=== PATIENT | female | born 1960 | race Caucasian/White ===

== ENCOUNTER → 2018-12-28 | Outpatient (CLI) | payer MEDICAID ==
--- NOTE | 2018-12-28 10:00 | Diagnostic Imaging Report ---
Examination: Bilateral knees 3 views. History: Chronic knee pain. Findings: No comparison available. There is moderate medial compartment predominant tricompartmental osteoarthritis of the right knee. No right knee joint effusion. No fracture. There are few loose bodies in the joint space. Alignment is normal. There is moderate medial compartment predominant tricompartmental osteoarthritis of the left knee. No knee joint effusion. No fracture. Alignment is normal. Impression: 1. Bilateral moderate medial compartment predominant tricompartmental osteoarthritis of the knees. Dictated by: Dictated on workstation # [id number]
== END ==
LOC: RAD FS 08:49
PROVIDERS: ATTEND Nurse Practitioner Family
DX: M17.0 Bilateral primary osteoarthritis of knee (principal)

== ENCOUNTER 2019-05-03 09:45 | Inpatient (IN) | payer MEDICAID ==
[~2019-05-03] VITALS: Ht 167 cm; Wt 87.0 kg
[2019-05-11] MEDS ORDERED: MELO15TA39 PO (13:35)
[2019-05-11] MEDS ORDERED: DULO30CA49 PO (13:35)
[2019-05-11] MEDS ORDERED: ATEN50TA PO (13:35)
--- NOTE | 2019-05-12 09:58 | HISTORY AND PHYSICAL ---
DATE OF SERVICE: 05/17/2019 ADMISSION HISTORY AND PHYSICAL DATE OF ADMISSION: 05/17/2019. Date of service will be 05/17/2019 for right total knee arthroplasty. HISTORY OF PRESENT ILLNESS: The patient is a 58-year-old female with complaints of progressive worsening right knee pain. This has been present for over 18 years. She reports swelling. She is under the treatment with injections with only temporary relief of symptoms. She reports activity limitations because of the knee and inability to exercise because of the knee. Due to functional impairment and failure to improve with conservative measures, the patient elected to proceed with surgical intervention. REVIEW OF SYSTEMS: No chest pain, no shortness of breath, no dysuria. PAST MEDICAL HISTORY: Borderline diabetes and hypertension. PAST SURGICAL HISTORY: Right breast biopsy. FAMILY HISTORY: Noncontributory. PRIMARY CARE PROVIDER: Anderson Rice MD. MEDICATIONS: Atenolol and Mobic. ALLERGIES: CODEINE. SOCIAL HISTORY: The patient is a former smoker. Denies alcohol use. RADIOGRAPHS: Reveal severe medial and patellofemoral arthrosis with osteophyte formation noted in both compartments. PHYSICAL EXAMINATION: GENERAL: The patient is well developed, well-nourished, in no acute distress. HEENT: Normocephalic, atraumatic. Pupils are equal, round and reactive to light. Oropharynx is clear. NECK: Supple, no lymphadenopathy. LUNGS: Clear to auscultation bilaterally. HEART: Regular rate and rhythm. ABDOMEN: Soft, nontender and nondistended. EXTREMITIES: The right knee demonstrates varus alignment. She has moderate effusion. She is tender along the medial joint line. She has patellofemoral crepitus and pain with patellar loading. Range of motion is 0/2/125. She is ligamentously stable in all planes. She ambulates with an antalgic gait. IMPRESSION: Right knee severe osteoarthritis, unresponsive to conservative measures. PLAN: Right total knee arthroplasty. The risks, benefits, options, ramifications and recovery were discussed at length with the patient. She understands and wishes to proceed. Job ID: [id number] DocumentID: [id number] Dictated Date: 05/05/2019 09:48:21 Envelope Sealer Operator Date: 05/05/2019 10:34:16 Dictated By: AISHA LEE MD
[2019-05-17] VITALS (13 sets, daily range): BP systolic 124–163; BP diastolic 65–87
[2019-05-17] MEDS ORDERED: ONDANSETRON 4 MG/2 ML (SDV) Z0FRAN ONE (06:37)
[2019-05-17] MEDS ORDERED: LIDOCAINE PF 2% 5 ML (XYLOCAINE) VIAL ONE (06:37)
[2019-05-17] MEDS ORDERED: SEVOFLURANE (ULTANE) 15 ML INHAL SOLN ONE ×3 (06:37→09:03)
[2019-05-17] MEDS ORDERED: DEXAMETHASONE 10 MG/ML (DECADRON) 1 ML VIAL ONE (06:37)
[2019-05-17] MEDS ORDERED: proPOfol 200 MG/20 ML (DIPRIVAN) VIAL IV ONE (06:37)
[2019-05-17] MEDS ORDERED: MIDAZOLAM 2 MG/2 ML (VERSED) VIAL ONE (06:38)
[2019-05-17] MEDS ORDERED: fentaNYL INJECTION 100 MCG/2 ML AMP ONE (06:38)
[2019-05-17] MEDS ORDERED: TRANEXAMIC ACID 100 MG/ML 10 ML INJECTION IV ONE (06:41)
[2019-05-17] MEDS ORDERED: CEFUROXIME INJECTION 1,500 MG in WATER (STERILE) FOR INJECTION 15 ML IV ONE (06:45)
[2019-05-17] MEDS ORDERED: CEFUROXIME 1.5 GM (ZINACEF) VIAL ONE ×3 (06:51→23:23)
[2019-05-17] MEDS ORDERED: WATER (STERILE) FOR INJECTION 20 ML ONE (06:53)
[2019-05-17] MEDS: LACTATED RINGERS 1,000 ML IV PRN ×2 (06:53→09:23)
[2019-05-17] MEDS ORDERED: INTRA-ARTICULAR IU ONE ×5 (07:15)
[2019-05-17] MEDS ORDERED: diphenhydrAMINE 50 MG/ML INJ (BENADRYL) IVP PRN (07:15)
[2019-05-17] MEDS ORDERED: CATHETER FLUSH 10 ML SYR IV PRN (07:15)
[2019-05-17] MEDS ORDERED: morphine PCA 100 MG/100 ML BAG IV PRN (07:15)
[2019-05-17] MEDS ORDERED: ACETAMINOPHEN 325 MG TABLET PO PRN (07:15)
--- NOTE | 2019-05-17 07:24 | Progress Note-Pre Operative ---
Pre-Operative Progress Note H&P Reviewed The H&P was reviewed, patient examined and no changes noted. Date Seen by Provider: May 17, 2019 Time Seen by Provider: 07:15 Date H&P Reviewed: May 17, 2019 Time H&P Reviewed: 07:11 Pre-Operative Diagnosis: right knee primary osteoarthritis AISHA LEE MD May 17, 2019 07:23 POS
--- NOTE | 2019-05-17 07:25 | Progress Note-Post Operative ---
Post-Operative Progess Note Surgeon (s)/Carroting Machine Operator (s) Surgeon AISHA LEE MD Carroting Machine Operator: Jim Kim Pre-Operative Diagnosis right knee primary osteoarthritis Post-Operative Diagnosis right knee primary osteoarthritis Procedure & Operative Findings Date of Procedure 05/17/19 Procedure Performed/Findings right total knee arthroplasty Anesthesia Type GETA plus regional Estimated Blood Loss Estimated blood loss (mL): minimal Specimens/Packing Specimens Removed none Packing: none AISHA LEE MD May 17, 2019 07:25 POS
[2019-05-17] MEDS ORDERED: OXYC1TAB87 PO (07:27)
--- NOTE | 2019-05-17 07:29 | D/C HH Face to Face Order ---
D/C Face to Face Orders Reconcile Patient Problems Problems Reviewed?: Yes Instructions for Patient Via Doris ProQuo, Patient Instructions/FollowUp: three weeks Physician to follow Patient: three weeks Discharge Diet for Home: Regular Diet Patient Data-Allergies,Ht & Wt Patient Allergies: Coded Allergies: codeine (Verified Allergy, Mild, RASH, 05/11/19) Home Health Need/Face to Face Date of Face to Face: May 17, 2019 Clinical Findings: Instability, Muscle weakness, Pain with ambulation, Unsteady gait I have seen Pt [id number]: Yes Discharged To: Home Diagnosis/Conditions: right total knee arthroplasty Patient is Homebound due to: Blaise fall risk due to instabilty, Muscle weakness, Pain w/ambulation Homebound Status Due to the above stated illness, injury or surgical procedure (medical condition or diagnosis) and associated clinical findings, the patient is homebound because of his/her inability to leave home except with aid of a supportive device and/or person AND leaving the home requires a considerable and taxing effort or is medically contraindicated. Pt req the following assistanc: Walker [facility] Health Nursing Orders Home Health Services Order: Physical Therapy-Evaluate & Treat DC right knee luke and apply steri strips 05/31/19 Home Health Infusion Therapy Line Start Date: May 17, 2019 Therapy Orders Therapy Orders: Physical Therapy, PT to assess for OT Therapy Specific Orders: Eval assistive deivces, Teach enviro modifications/safety, Gait training, Increase strength/endurance, Provider maintenance therapy, Restore ROM Certify Stmt I certify that this patient is under my care and that I, a nurse practitioner or a physician; a financial sales assistant working with me, had a face to face encounter that - meets the physician face to face encounter requirements with this patient as dated. AISHA LEE MD May 17, 2019 07:29 POS
[2019-05-17] MEDS ORDERED: hydrALAZINE (APESOLINE) 20 MG/ML VIAL ONE (08:13)
[2019-05-17] MEDS ORDERED: BUPIVACAINE 0.25% 30 ML (SENSORCAINE) VIAL ONE ×2 (08:17→09:17)
[2019-05-17] MEDS ORDERED: MEPERIDINE (DEMEROL) INJ 50 MG/ML ONE (09:10)
[2019-05-17] MEDS ORDERED: morphine INJ 10 MG/ML 1ML (SYR OR VIAL) ONE (09:10)
[2019-05-17] MEDS ORDERED: morphine INJ 10 MG/ML 1ML (SYR OR VIAL) IVP ONE (09:15)
[2019-05-17] MEDS ORDERED: ONDANSETRON 4 MG/2 ML (SDV) Z0FRAN IVP PRN (09:15)
[2019-05-17] MEDS ORDERED: MEPERIDINE (DEMEROL) INJ 50 MG/ML IVP ONE (09:15)
--- NOTE | 2019-05-17 10:02 | Diagnostic Imaging Report ---
INDICATION: Right knee surgery. FINDINGS: AP and lateral views of the right knee reveal total right knee arthroplasty. No fracture or malalignment is identified. Gas and fluid is seen in the knee joint. IMPRESSION: No evidence of immediate complication post recent total right knee arthroplasty. Dictated by: Dictated on workstation # [id number]
[2019-05-17] MEDS: NS IV 1000 ML 1,000 ML IV SCH ×3 (11:00→23:32)
[2019-05-17] MEDS: SENNA W/DOCUSATE (SENOKOT S) TABLET PO SCH ×2 (11:01→21:08)
--- NOTE | 2019-05-17 11:04 | Progress Note ---
Standard Progress Note Progress Notes/Assess & Plan Date Seen by a Provider: May 17, 2019 Time Seen by a Provider: 09:45 Progress/Assessment & Plan post op check No complaints radiographs--HW well positioned without fracture RLE--2 plus DP pulse with brisk cap refill. Intact sensation to light touch throughout. Intact DF and PF of toes and ankle s/p RTKA mobilize as able AISHA LEE MD May 17, 2019 11:04 POS
--- NOTE | 2019-05-17 11:36 | Anesthesia-General Post-Op ---
General Patient Condition Mental Status/LOC: Same as Preop Cardiovascular: Satisfactory Nausea/Vomiting: Absent Respiratory: Satisfactory Pain: Controlled Complications: Absent Post Op Complications Complications None Follow Up Care/Instructions Patient Instructions None needed. Anesthesia/Patient Condition Patient Condition Patient is doing well, no complaints, stable vital signs, no apparent adverse anesthesia problems. No complications reported per nursing. KEVIN GONZALES CRNA May 17, 2019 11:36 POS
[2019-05-17] MEDS: ONDANSETRON 4 MG/2 ML (SDV) Z0FRAN IVP PRN (13:16)
--- NOTE | 2019-05-17 13:29 | OPERATIVE REPORT ---
DATE OF SERVICE: 05/17/2019 PREOPERATIVE DIAGNOSIS: Right knee primary osteoarthritis. POSTOPERATIVE DIAGNOSIS: Right knee primary osteoarthritis. PROCEDURE: Right total knee arthroplasty. SURGEON: Akin Lee MD SECRET SERVICE AGENT: MAHOGANY Dean, who assisted throughout the procedure and closed the incision. ANESTHESIA: General endotracheal by Yolis Pop CRNA, plus regional nerve block as per my request for postoperative pain management. TOURNIQUET TIME: Approximately 56 minutes at 300 mmHg. ESTIMATED BLOOD LOSS: Minimal. DRAINS: None. COMPLICATIONS: None. POSTOPERATIVE PLAN: Routine protocol. MATERIALS: Microport cemented size 3 femur, cemented size 3 tibia with 10 mm insert and cemented size 32 patellar button. The patient was transferred to recovery room awake and in stable condition. STATEMENT OF MEDICAL NECESSITY: The patient is a 58-year-old female with long-standing progressive right knee pain. Radiographs revealed complete loss of medial and patellofemoral joint spaces. She has undergone treatment with injections, anti-inflammatories and rest without relief. Due to functional impairment and failure to improve with conservative measures, the patient elected to proceed with surgical intervention. DESCRIPTION OF PROCEDURE: After risks and benefits of procedure were discussed and questions were answered and informed consent was signed and placed on chart, the operative site was confirmed in the preoperative holding area initialed by the surgeon. The patient was transferred to the operating room. After adequate levels of general endotracheal anesthetic were obtained, a timeout was called, confirming the operative site. The right lower extremity was then prepped and draped in the usual sterile fashion with the leg elevated and the knee flexed, tourniquet inflated to 300 mmHg. A standard anterior approach was utilized. Hemostasis was obtained with cautery. Medial parapatellar arthrotomy was performed leaving 1 cm cuff on the patella for later reattachment. A portion of the fat pad was resected. A subperiosteal release was performed in the proximal medial tibia being careful to stay on the bony surface. The ACL was resected. Intramedullary guide was passed into the femur. The distal cutting block was placed and the distal cut was made. The femur was sized to a size 3 and 3 cutting block was placed parallel to the epicondylar axis. This was then used to make cuts from posterior to anterior. A subperiosteal release was then carefully performed on the posterior distal femur, being careful stay on the bony surface. Intramedullary guide was then passed into the tibia. The cutting block was placed and drop elida transected the intermalleolar axis and felt to be in excellent position. The cut was made. The baseplate was placed and the drop elida again transected the intermalleolar axis. This was prepared with the drill and keel punch. The femoral trial was placed and the trochlear cut was made. The 10 mm insert was placed and the patella was then prepared using the freehand technique by selecting 10 mm off the undersurface. The peg guide was placed and peg holes were drilled. Trials were inserted and the knee had full extension and 130 degrees of flexion with gravity. The patella tracked well. There was no anterior/posterior or medial/lateral laxity in flexion or extension. Trials were removed and the joint was irrigated with pulse lavage. Periarticular block was placed in the posterior capsule, medial and lateral retinaculum extensor mechanism subcutaneous tissues. The bone ends were irrigated and dried and the tibial baseplate was cemented into position. Excess cement was removed. The superior surface was irrigated and dried and the polyethylene insert was placed. Distal femur was irrigated and dried and the femoral prosthesis was cemented in position. Excessive cement was removed. The undersurface of patella was irrigated and dried. The patellar button was cemented in position. Excessive cement was removed. Once the cement had cured, the knee was taken through a range of motion. Full extension was easily obtained flexion with gravity was easily obtained. There was no anterior/posterior or medial/lateral laxity in flexion or extension. The patella tracked well. Joint was further irrigated with pulse lavage. Arthrotomy was closed with #2 Tevdek in zfxhcs-bt-umzsv interrupted fashion. Knee was flexed. No undue tension at the repair site. Subcutaneous tissues were irrigated using a total of 6 liters throughout the procedure. A 0 Vicryl was used for deep subcutaneous tissue, 2-0 Vicryl for the superficial subcutaneous tissue and luke used on the skin. A soft dressing was applied. The tourniquet was deflated. The patient was transferred to recovery room awake and in stable condition. Job ID: [id number] DocumentID: [id number] Dictated Date: 05/17/2019 09:15:12 Stranner Date: 05/17/2019 13:29:12 Dictated By: AKIN LEE MD
--- NOTE | 2019-05-17 15:12 | Physical Therapy Evaluation ---
PT Evaluation-General Medical Diagnosis Admission Date May 17, 2019 at 05:47 Medical Diagnosis: S/P R TKA Onset Date: May 17, 2019 Therapy Diagnosis Therapy Diagnosis: abn gait, weakness, decreased activity bassam, poor balance Precautions Precautions/Isolations: Fall Prevention, Standard Precautions Weight Bear Status Right Lower Extremity: Right Weight Bearing/Tolerated Left Lower Extremity: Left Full Weight Bearing Referral Physician: Julio Reason for Referral: Evaluation/Treatment, Strengthening Medical History Additional Medical History PAST MEDICAL HISTORY: Borderline diabetes and hypertension. PAST SURGICAL HISTORY: Right breast biopsy. Reviewed History: Yes Social History Home: Single Level Current Living Status: Significant Other Entry Into Home: Stairs Without Railing PT Steps Into Home: 1 pt ex present and reports pts prior and home status Prior Prior Level of Function SCALE: Activities may be completed with or without assistive devices. 0-Qdpvghpuur-kbqenwb completes the activity by him/herself with no assistance from a helper. 5-Set-up or Clean-up Assistance-helper sets up or cleans up; patient completes activity. [place] assists only prior to or following the activity. 4-Supervision or Touching Assistance-helper provides verbal cues and/or touching/steadying and/or contact guard assistance as patient completes activity. Assistance may be provided throughout the activity or intermittently. 3-Partial/Moderate Assistance-helper does LESS THAN HALF the effort. [place] lifts, holds or supports trunk or limbs, but provides less than half the effort. 2-Substantial/Maximal Assistance-helper does MORE THAN HALF the effort. [place] lifts or holds trunk or limbs and provides more than half the effort. 5-Cwohrroul-hcnsdc does ALL the effort. Patient does none of the effort to complete the activity. Or, the assistance of 2 or more helpers is required for the patient to complete the activity. If activity was not attempted, code reason: 7-Patient Refused. 9-Not Applicable-not attempted and the patient did not perform the activity before the current illness, exacerbation or injury. 10-Not Attempted due to Environmental Limitations-(lack of equipment, weather restraints, etc.). 88-Not Attempted due to Medical Conditions or Safety Concerns. Bed Mobility: 6 Transfers (B,C,W/C): 6 Gait: 6 Stairs: 3 Indoor Mobility (Ambulation): Independent Stairs: Needed Some Help PT Evaluation-Current Subjective pt on bedside commode pre-tx agrees to therapy. pt reports 5/10 pain in the RLE. pt in bed post-tx with call light, room phone, tray table in reach with ex present for therapy. Bed alarm not working, nurse notified. Pt/Family Goals none stated Objective Patient Orientation: Person, Confused, Place, Time, Situation, Mumbles Attachments: SCD's, Polar Pack, IV cpm ROM/Strength ROM Lower Extremities 65degrees R knee flexion 10 degrees lacking R TKE Integumentary/Posture Integumentary see nursing notes Sensory Vision: Functional Hearing: Functional Sensation Right Lower Extremit: Intact Sensation Left Lower Extremity: Intact Transfers Roll Left to Right (QC): 9 Sit to Lying (QC): 3 (modA) Lying to Sitting/Side of Bed(Q: 9 Sit to Stand (QC): 3 (Bethany) Chair/Pvc-zn-Isnmg Xfer(QC): 3 (modA) Car Transfer (QC): 9 Gait Does the Patient Walk?: Yes Mode of Locomotion: Walk Anticipated Mode of Locomotion: Walk Walk 10 feet (QC): 9 Walk 50 ft with 2 Turns(QC): 9 Walk 150 ft (QC): 9 Walking 10ft/uneven surface-QC: 9 Distance: 2' Gait Assistive Device: FWW Comments/Gait Description pt only able to shuffle step 2 feet from commode to bed. pt leans heavily on FWW and does not lift feet off of the ground. Wheelchair Training Does the Pt Use a Wheelchair?: No Wheel 50 ft with 2 turns (QC): 9 Wheel 150 ft (QC): 9 Type of Wheelchair: Manual Stairs 1 Step (curb) (QC): 9 4 Steps (QC): 9 12 Steps (QC): 9 Balance Sitting Static: Good Sitting Dynamic: Fair Standing Static: Fair Standing Dynamic: Fair Picking up an Object (QC): 9 Treatment pt performed transfer training, skilled ambulation training, education, and functional LE strengthening exercises (10 supine: AP's, HS's, SLR all AAROM secondary to pt's grogginess) Assessment/Needs pt is on commode and reports increased dizziness prior to standing that she reports is getting worse. Pt is able to stand and shuffle steps over to the bed. Pt is very groggy and mumbles and is making no sense but at times becomes aware that she is making no sense. Rehab Potential: Fair PT Obstetric Anaesthetist Goals Residential Goals PT Residential Goals Time Frame: May 24, 2019 Roll Left & Right (QC): 6 Sit to Lying (QC): 4 Lying-Sitting on Side/Bed(QC): 4 (SBA) Sit to Stand (QC): 4 (SBA) Chair/Mjw-fy-Ytmil Xfer(QC): 4 (SBA) Toilet Transfer (QC): 9 Car Transfer (QC): 9 Does the Patient Walk: Yes Walk 10 feet (QC): 4 (SBA) Walk 50ft with 2 Turns (QC): 4 (SBA) Walk 150 ft (QC): 4 (SBA) Walking 10ft on Uneven Surface: 9 1 Step (curb) (QC): 4 (CGA) 4 Steps (QC): 9 12 Steps (QC): 9 Picking up an Object (QC): 9 Does the Pt use WC or Scooter?: No Type: N/A Type: N/A PT Plan Problem List Problem List: Activity Tolerance, Functional Strength, Safety, Balance, Gait, Transfer, Bed Mobility, ROM Treatment/Plan Treatment Plan: Continue Plan of Care Treatment Plan: Bed Mobility, Education, Functional Activity Martín, Functional Strength, Gait, Safety, Therapeutic Exercise, Transfers Treatment Duration: May 24, 2019 Frequency: 11 times per week Estimated Hrs Per Day: .25 hour per day Patient and/or Family Agrees t: Yes Safety Risks/Education Patient Education: Gait Training, Transfer Techniques, Correct Positioning, Safety Issues Teaching Recipient: Patient, Family Teaching Methods: Demonstration, Discussion Response to Teaching: Return Demonstration, Reinforcement Needed Discharge Recommendations Plan Patient will perform bed mobility and transfer training, balance and endurance training, functional strengthening, stair training, gait training, and education, to improve functional mobility and independence at home. Therapy Discharge Recommendati: Other, See Comments (NH or rehab) Time/GCodes Time In: 1417 Time Out: 1440 Total Billed Treatment Time: 23 Total Billed Treatment 1 visit EVL 10' EX 13' NORMA ARMSTRONG PT May 17, 2019 15:12 POS
[2019-05-17] MEDS: CEFUROXIME INJECTION 750 MG in WATER (STERILE) FOR INJECTION 10 ML IV SCH ×2 (15:46→23:32)
[2019-05-17] MEDS: oxyCODONE/APAP 5/325MG (PERCOCET 5) TABLET PO PRN ×2 (18:55→21:08)
[2019-05-18] VITALS (7 sets, daily range): BP systolic 110–183; BP diastolic 58–79
[2019-05-18] MEDS: oxyCODONE/APAP 5/325MG (PERCOCET 5) TABLET PO PRN ×7 (05:12→23:03)
[2019-05-18] MEDS: MULTIVIT W/MINERALS TAB (THERAGRAN M) PO SCH (05:12)
[2019-05-18] MEDS: ENOXAPARIN 30 MG/0.3 ML (LOVENOX) SYR SC SCH ×2 (05:13→18:26)
[2019-05-18 06:58] LABS: BASOPHILS % (AUTO) 0 % (0-10); EOSINOPHILS % (AUTO) 0 % (0-10); HEMATOCRIT 34 % (35-52); HEMOGLOBIN 11.1 G/DL (11.5-16.0); LYMPHOCYTES # (AUTO) 1.4 X 10^3 (1.0-4.0); LYMPHOCYTES % (AUTO) 12 % (12-44); MEAN CORPUSCULAR HEMOGLOBIN 31 PG (25-34); MEAN CORPUSCULAR HGB CONC 32 G/DL (32-36); MEAN CORPUSCULAR VOLUME 96 FL (80-99); MEAN PLATELET VOLUME 9.2 FL (7.4-10.4); MONOCYTES # (AUTO) 0.9 X 10^3 (0.0-1.0); MONOCYTES % (AUTO) 8 % (0-12); NEUTROPHILS # (AUTO) 8.6 X 10^3 (1.8-7.8); NEUTROPHILS % (AUTO) 79 % (42-75); PLATELET COUNT 191 10^3/uL (130-400); WHITE BLOOD COUNT 10.9 10^3/uL (4.3-11.0)
[2019-05-18 07:19] LABS: ALANINE AMINOTRANSFERASE 39 U/L (0-55); ALBUMIN 3.7 GM/DL (3.2-4.5); ALKALINE PHOSPHATASE 118 U/L (40-136); BILIRUBIN,TOTAL 0.5 MG/DL (0.1-1.0); BUN/CREATININE RATIO 16; CALCIUM 8.4 MG/DL (8.5-10.1); CARBON DIOXIDE 20 MMOL/L (21-32); CHLORIDE 108 MMOL/L (98-107); CREATININE SERUM 0.74 MG/DL (0.60-1.30); GFR ESTIMATED > 60; GLUCOSE 149 MG/DL (70-105); POTASSIUM 3.8 MMOL/L (3.6-5.0); SODIUM 140 MMOL/L (135-145); TOTAL PROTEIN 6.3 GM/DL (6.4-8.2)
--- NOTE | 2019-05-18 07:58 | Progress Note ---
Standard Progress Note Progress Notes/Assess & Plan Date Seen by a Provider: May 18, 2019 Time Seen by a Provider: 07:55 Progress/Assessment & Plan post op check No complaints radiographs--HW well positioned without fracture RLE--2 plus DP pulse with brisk cap refill. Intact sensation to light touch throughout. Intact DF and PF of toes and ankle s/p RTKA mobilize as able Final Diagnosis feeling better. Has not ambulated beyond bedside. Using COPY CHASER Vital Signs Date Time Temp Pulse Resp B/P (MAP) Pulse Ox O2 Delivery O2 Flow Rate FiO2 05/18/19 04:00 36.9 76 20 135/75 (95) 93 Room Air 05/18/19 00:00 36.7 61 18 110/66 (81) 91 Room Air 05/17/19 21:35 Room Air 05/17/19 19:40 36.5 83 20 124/71 (88) 96 Room Air 05/17/19 16:59 36.2 75 16 153/74 (100) 92 Room Air 05/17/19 13:27 18 05/17/19 12:00 36.0 76 16 150/65 (93) 93 Room Air 05/17/19 10:05 36.6 84 18 154/74 (100) 96 Room Air 05/17/19 10:00 Nasal Cannula 2 05/17/19 10:00 36.4 18 134/72 (92) 95 Nasal Cannula 2 05/17/19 09:50 Nasal Cannula 2 05/17/19 09:50 18 133/69 (90) 95 Nasal Cannula 2 05/17/19 09:47 Room Air 05/17/19 09:40 18 135/75 (95) 97 OxyMask 3 05/17/19 09:35 OxyMask 6 05/17/19 09:30 18 145/75 (98) 97 OxyMask 6 05/17/19 09:20 18 146/72 (96) 96 OxyMask 6 05/17/19 09:20 OxyMask 6 05/17/19 09:10 18 162/82 (108) 96 OxyMask 6 05/17/19 09:06 36.2 16 162/85 (110) 96 OxyMask 6 05/17/19 09:06 OxyMask 6 I & O 05/18/19 07:00 Intake Total 2295 ml Output Total 400 ml Balance 1895 ml Laboratory Tests Test 05/18/19 06:15 Range/Units White Blood Count 10.9 4.3-11.0 10^3/uL Red Blood Count 3.59 L 4.35-5.85 10^6/uL Hemoglobin 11.1 #L 11.5-16.0 G/DL Hematocrit 34 L 35-52 % Mean Corpuscular Volume 96 80-99 FL Mean Corpuscular Hemoglobin 31 25-34 PG Mean Corpuscular Hemoglobin Concent 32 32-36 G/DL Red Cell Distribution Width 14.0 10.0-14.5 % Platelet Count 191 130-400 10^3/uL Mean Platelet Volume 9.2 7.4-10.4 FL Neutrophils (%) (Auto) 79 H 42-75 % Lymphocytes (%) (Auto) 12 12-44 % Monocytes (%) (Auto) 8 0-12 % Eosinophils (%) (Auto) 0 0-10 % Basophils (%) (Auto) 0 0-10 % Neutrophils # (Auto) 8.6 H 1.8-7.8 X 10^3 Lymphocytes # (Auto) 1.4 1.0-4.0 X 10^3 Monocytes # (Auto) 0.9 0.0-1.0 X 10^3 Eosinophils # (Auto) 0.0 0.0-0.3 10^3/uL Basophils # (Auto) 0.0 0.0-0.1 10^3/uL Sodium Level 140 135-145 MMOL/L Potassium Level 3.8 3.6-5.0 MMOL/L Chloride Level 108 H 98-107 MMOL/L Carbon Dioxide Level 20 L 21-32 MMOL/L Anion Gap 12 5-14 MMOL/L Blood Urea Nitrogen 12 7-18 MG/DL Creatinine 0.74 0.60-1.30 MG/DL Estimat Glomerular Filtration Rate > 60 BUN/Creatinine Ratio 16 Glucose Level 149 H 70-105 MG/DL Calcium Level 8.4 L 8.5-10.1 MG/DL Corrected Calcium 8.6 8.5-10.1 MG/DL Total Bilirubin 0.5 0.1-1.0 MG/DL Aspartate Amino Transf (AST/SGOT) 22 5-34 U/L Alanine Aminotransferase (ALT/SGPT) 39 0-55 U/L Alkaline Phosphatase 118 40-136 U/L Total Protein 6.3 L 6.4-8.2 GM/DL Albumin 3.7 3.2-4.5 GM/DL RLE--dressing intact. NVI distally. Neg SLR. Unable to independently move RLE for transfer. No calf tenderness s/p RTKA is requiring continued IV pain meds Needs PT and OT for mobility and ADLs unable to DC today. Likely home tomorrow AISHA LEE MD May 18, 2019 07:58 POS
[2019-05-18] MEDS: ASPIRIN E.C. 81 MG (ECOTRIN) TAB PO SCH (08:41)
[2019-05-18] MEDS: SENNA W/DOCUSATE (SENOKOT S) TABLET PO SCH ×2 (08:41→20:34)
--- NOTE | 2019-05-18 09:44 | Consultation - Hospitalist ---
HPI History of Present Illness: HPI/Chief Complaint Chief complaint: Right knee replacement medical management. HPI: This is a 58yoWF clinic Pt of Dr. Rice who underwent an uncomplicated right knee replacement. She is accompanied by her ex- at the bedside. She is a retired daycare worker and does not smoke or drink alcohol. She has never had surgery before, pain is well controlled and awaiting PT and she is a little nervous about that. I reviewed her labs, her HGB remains stable at 11. Source: patient, family Exam Limitations: no limitations Date Seen 05/18/19 Attending Physician Akin Nguyen MD PCP Anedrson Rice MD Referring Physician Date of Admission May 17, 2019 at 05:47 Home Medications & Allergies Home Medications Reviewed patient Home Medication Reconciliation performed by pharmacy medication reconciliations auto repair technician and/or nursing. Patients Allergies have been reviewed. Allergies Allergies Coded Allergies codeine (Verified Allergy, Mild, RASH, 05/11/19) Past Ugwdqjv-Qnhrrs-Veurjd Hx Past Med/Social Hx: Reviewed Nursing Past Med/Soc Hx, Reviewed and Corrections made Patient Social History Marrital Status: Employed/Student: retired (day care) Alcohol Use: Denies Use Recreational Drug Use: No Smoking Status: Former Smoker Former Smoker, Quit: May 11, 1980 Physical Abuse Screen: No Sexual Abuse: No Recent Foreign Travel: No Contact w/other who traveled: No Recent Hopitalizations: No Recent Infectious Disease Expo: No Seasonal Allergies Seasonal Allergies: No (MILD) Past Medical History Sexually Transmitted Disease: No HIV/AIDS: No Gastrointestinal: Gastroesophageal Reflux, Chronic Constipation, Chronic Diarrhea Musculoskeletal: Arthritis, Chronic Back Pain Loss of Vision: Denies Hearing Impairment: Denies History of Blood Disorders: No Adverse Reaction to Blood [place]: No (N/A) Family History Alcoholism Cardiovascular disease Diabetes mellitus Hypertension Myocardial infarction Review of Systems Constitutional: see HPI Gastrointestinal: constipation Musculoskeletal: joint pain Physical Exam Physical Exam Vital Signs Vital Signs - First Documented Capillary Refill : Less Than 3 Seconds Height, Weight, BMI Height: '" Weight: lbs. oz. kg; 31.19 BMI Method: General Appearance: No Apparent Distress, WD/WN Eyes: Bilateral Eye Normal Inspection, Bilateral Eye PERRL HEENT: PERRL/EOMI, Normal ENT Inspection, Pharynx Normal Neck: Full Range of Motion, Normal Inspection, Non Tender, Supple, Carotid Bruit Respiratory: Chest Non Tender, Lungs Clear, Normal Breath Sounds, No Accessory Muscle Use, No Respiratory Distress Cardiovascular: Regular Rate, Rhythm, No Edema, No Gallop, No JVD, No Murmur, Normal Peripheral Pulses Gastrointestinal: Normal Bowel Sounds, No Organomegaly, No Pulsatile Mass, Non Tender, Soft Back: Normal Inspection, No CVA Tenderness, No Vertebral Tenderness Extremity: Normal Capillary Refill, Normal Inspection, Normal Range of Motion (except right leg), Non Tender, No Calf Tenderness, No Pedal Edema Neurologic/Psychiatric: Alert, Oriented x3, No Motor/Sensory Deficits, Normal Mood/Affect Skin: Normal Color, Warm/Dry Lymphatic: No Adenopathy Results Results/Procedures Labs Laboratory Tests 05/18/19 06:15 Patient resulted labs reviewed. Assessment/Plan Assessment and Plan Assess & Plan/Chief Complaint Assessment: s/p right knee replacement POD # 1 OA Depression HTN Plan: Pain meds CPM DVTPPx Diagnosis/Problems Diagnosis/Problems (1) Status post right knee replacement (2) Hypertension (3) Depression (4) Constipation Clinical Quality Measures DVT/VTE Risk/Contraindication: Risk Factor Score Per Nursin RFS Level Per Nursing on Admit: 4+=Very High ARIEL STEWART DO May 18, 2019 09:44 POS
--- NOTE | 2019-05-18 10:22 | Occupational Therapy Eval ---
OT Evaluation-General/PLF Medical Diagnosis Admission Date May 17, 2019 at 05:47 Medical Diagnosis: S/P R TKA Onset Date: May 17, 2019 Therapy Diagnosis Therapy Diagnosis: impaired ADLs and functional mobility Precautions Precautions/Isolations: Fall Prevention, Standard Precautions Safety Interventions: None Referral Physician: Julio Referral Reason: Activity Tolerance, Self Care, Evaluation/Treatment, Strengthening/ROM Medical History Pertinent Medical History: DM (borderline), HTN Current History Pt has had knee pain in her right knee for the past 18 years. She has tried conservative tx with injections which provided temporary relief. Pt elected to have surgery due to functional impairments and failure to improve with conse rvative management. Reviewed History: Yes Social History Home: Single Level Current Living Status: Significant Other Entry Into Home: Stairs Without Railing Steps Into Home: 1 ADL-Prior Level of Function SCALE: Activities may be completed with or without assistive devices. 9-Ewholdqtwo-xidcftu completes the activity by him/herself with no assistance from a helper. 5-Set-up or Clean-up Assistance-helper sets up or cleans up; patient completes activity. [place] assists only prior to or following the activity. 4-Supervision or Touching Assistance-helper provides verbal cues and/or touching/steadying and/or contact guard assistance as patient completes activity. Assistance may be provided throughout the activity or intermittently. 3-Partial/Moderate Assistance-helper does LESS THAN HALF the effort. [place] lifts, holds or supports trunk or limbs, but provides less than half the effort. 2-Substantial/Maximal Assistance-helper does MORE THAN HALF the effort. [place] lifts or holds trunk or limbs and provides more than half the effort. 8-Qnacoglwp-ktdgxy does ALL the effort. Patient does none of the effort to complete the activity. Or, the assistance of 2 or more helpers is required for the patient to complete the activity. If activity was not attempted, code reason: 7-Patient Refused. 9-Not Applicable-not attempted and the patient did not perform the activity before the current illness, exacerbation or injury. 10-Not Attempted due to Environmental Limitations-(lack of equipment, weather restraints, etc.). 88-Not Attempted due to Medical Conditions or Safety Concerns. Self Care: Independent Functional Cognition: Independent DME/Equipment: Bath Chair DME/Equipment Comments none OT Current Status Subjective Pt laying in bed at start of session, agreeable to OT eval stating she needed to use the bathroom. Pt did not verbalize pain rating during tx. Mental Status/Objective Patient Orientation: Person, Place, Time, Situation Attachments: IV, Polar Pack, SCD's Current Glasses/Contacts: Yes Hearing Aids: No Dentures/Partials: No Hand Dominance: Right Upper Extremity ROM WFL Upper Extremity Coordination no deficits noted Upper Extremity Sensation pt did not report any changes in sensation Upper Extremity Strength grossly 3+/5 BUE MMT ADL-Treatment Eating (QC): 7 Oral Hygiene (QC): 7 Shower/Bathe Self (QC): 7 Upper Body Dressing (QC): 3 (Pt donned hospital gown around back like a robe, she was able to thread RUE into gown, required assist with LUE due to IVs) Lower Body Dressing (QC): 7 On/Off Footwear (QC): 1 (Per pt report, she is unable to don/doff BLE socks.) Toileting Hygiene (QC): 4 (SBA, Pt able to complete toileting hygiene, no clothing management performed.) Toilet Transfer (QC): 3 (Min A to/from BSC.) Other Treatments Pt laying in bed, required assistance moving RLE during supine to sit transfer. Pt then able to scoot hips forward towards EOB. Pt stood with Min A from EOB and transferred to BSC. Pt completed toileting and donning hospital gown. Pt then transferred back to the bed. Post OT session, pt laying in bed, polar pack on RLE, call light in reach and all needs met. PT present beginning tx. Education OT Patient Education: Correct positioning, Energy conservation, Modified ADL techniques, Progress toward Goal/Update tx plan, Purpose of tx/functional activities Teaching Recipient: Health Care Proxy, Family Teaching Methods: Demonstration, Discussion Response to Teaching: Verbalize Understanding, Return Demonstration OT Alf Goals Alf Goals Time Frame: May 26, 2019 Eating (QC): 6 Oral Hygiene (QC): 6 Toileting Hygiene (QC): 6 Shower/Bathe Self (QC): 6 Upper Body Dressing (QC): 6 Lower Body Dressing (QC): 6 On/Off Footwear (QC): 6 Additional Goals: 1-Demonstrate ADL Tasks, 2-Verbalize Understanding, 3-ImproveStrength/Martín 1=Demonstrate adherence to instructed precautions during ADL tasks. 2=Patient will verbalize/demonstrate understanding of assistive devices/modifications for ADL. 3=Patient will improve strength/tolerance for activity to enable patient to perform ADL's. OT Education/Plan Problem List/Assessment Assessment: Decreased Activ Tolerance, Decreased UE Strength, Impaired Funct Balance, Impaired I ADL's, Impaired Self-Care Skills Discharge Recommendations Plan/Recommendations: Continue POC Equpiment Recommendations-D/C: Extended Bath Bench Treatment Plan/Plan of Care Treatment,Training & Education: Yes Patient would benefit from OT for education, treatment and training to promote independence in ADL's, mobility, safety and/or upper extremity function for A DL's. Plan of Care: ADL Retraining, Caregiver Training, Functional Mobility, UE Funct Exercise/Act Treatment Duration: May 26, 2019 Frequency: 5 times per week Estimated Hrs Per Day: .25 hour per day Agreement: Yes Rehab Potential: Fair Time/GCodes Start Time: 09:49 Stop Time: 10:10 Total Time Billed (hr/min): 21 Billed Treatment Time 1, RACHEL MEJIA OT May 18, 2019 10:22 POS
--- NOTE | 2019-05-18 12:01 | Physical Therapy Daily Note ---
PT Daily Note-Current Subjective Patient agrees to PT. Reports she has not been up and walked in hospital. Patient reports some dizziness during ambulation. Pain Numeric Pain Scale: 7 Location: Right Location Body Site: Knee Pain Description: Acute Mental Status Patient Orientation: Person, Place, Time, Situation Attachments: SCD's, Polar Pack, IV Transfers SCALE: Activities may be completed with or without assistive devices. 7-Flbxiabsrp-hpzptrl completes the activity by him/herself with no assistance from a helper. 5-Set-up or Clean-up Assistance-helper sets up or cleans up; patient completes activity. [place] assists only prior to or following the activity. 4-Supervision or Touching Assistance-helper provides verbal cues and/or touching/steadying and/or contact guard assistance as patient completes activity. Assistance may be provided throughout the activity or intermittently. 3-Partial/Moderate Assistance-helper does LESS THAN HALF the effort. [place] lifts, holds or supports trunk or limbs, but provides less than half the effort. 2-Substantial/Maximal Assistance-helper does MORE THAN HALF the effort. [place] lifts or holds trunk or limbs and provides more than half the effort. 2-Dyjguumms-agggiq does ALL the effort. Patient does none of the effort to comp lete the activity. Or, the assistance of 2 or more helpers is required for the patient to complete the activity. If activity was not attempted, code reason: 7-Patient Refused. 9-Not Applicable-not attempted and the patient did not perform the activity before the current illness, exacerbation or injury. 10-Not Attempted due to Environmental Limitations-(lack of equipment, weather restraints, etc.). 88-Not Attempted due to Medical Conditions or Safety Concerns. Roll Left & Right (QC): 4 Sit to Lying (QC): 4 Lying to Sitting/Side of Bed(Q: 4 Sit to Stand (QC): 4 Bethany to SBA for bed mobility and standing; self limited by pain Weight Bearing Right Lower Extremity: Right Weight Bearing/Tolerated Left Lower Extremity: Left Full Weight Bearing Gait Training Does the Patient Walk?: Yes Distance: 100' Walk 10 feet (QC): 3 Walk 50 ft with 2 Turns(QC): 3 Gait Assistive Device: FWW Antalgic, slow, decreased WB on RLE; focused on not toe-walking. Exercises Supine Ex: Ankle pumps, Heel Slides, Hip abd/add Supine Reps: 10 Seated Therapy Exercises: Long arc quads, Hip flexion Seated Reps: 10 Assessment Patient able to complete LE exercises with difficulty and pain but required no assistance. Patient performed bed mobility SBA. Patient able to stand from EOB with Bethany and stand for 1 minute for balance. Ambulated with antalgic gait and initially toe walking, but educated on ability to bear weight fully on foot to ambulate and attempted to walk with flat foot instead. Ambulated at slow pace and significant UE weight bearing on walker for 100'. Reported some dizziness and exhaustion during walk that subsided with return to bed. Patient set up on Zazzy and CPM at 70 deg flexion at conclusion of treatment. PT Link Trainer Maintenance Man Goals Detention Goals PT Link Trainer Maintenance Man Goals Time Frame: May 24, 2019 Roll Left & Right (QC): 6 Sit to Lying (QC): 4 Lying-Sitting on Side/Bed(QC): 4 (SBA) Sit to Stand (QC): 4 (SBA) Chair/Tao-sl-Vziko Xfer(QC): 4 (SBA) Toilet Transfer (QC): 9 Car Transfer (QC): 9 Does the Patient Walk: Yes Walk 10 feet (QC): 4 (SBA) Walk 50ft with 2 Turns (QC): 4 (SBA) Walk 150 ft (QC): 4 (SBA) Walking 10ft on Uneven Surface: 9 1 Step (curb) (QC): 4 (CGA) 4 Steps (QC): 9 12 Steps (QC): 9 Picking up an Object (QC): 9 Does the Pt use WC or Scooter?: No Type: N/A Type: N/A PT Plan Treatment/Plan Treatment Plan: Continue Plan of Care Treatment Plan: Bed Mobility, Education, Functional Activity Martín, Functional Strength, Gait, Safety, Therapeutic Exercise, Transfers Treatment Duration: May 24, 2019 Frequency: 11 times per week Estimated Hrs Per Day: .25 hour per day Patient and/or Family Agrees t: Yes Time/GCodes Time In: 1010 Time Out: 1034 Total Billed Treatment Time: 24 Total Billed Treatment 1 visit EX 10min GT 14min HELEN STEWART PT May 18, 2019 12:01 POS
[2019-05-18] MEDS: NS IV 1000 ML 1,000 ML IV SCH (14:29)
--- NOTE | 2019-05-18 14:59 | Physical Therapy Daily Note ---
PT Daily Note-Current Subjective Patient agrees to PT at this time. Reports she has been on CPM since end of therapy this morning. Reports feeling better this afternoon. Pain Numeric Pain Scale: 5-Moderate Pain Location: Left Location Body Site: Knee Pain Description: Acute Mental Status Patient Orientation: Person, Place, Time, Situation Attachments: Polar Pack, IV Transfers SCALE: Activities may be completed with or without assistive devices. 3-Twnyidnfnw-evodobz completes the activity by him/herself with no assistance from a helper. 5-Set-up or Clean-up Assistance-helper sets up or cleans up; patient completes activity. [place] assists only prior to or following the activity. 4-Supervision or Touching Assistance-helper provides verbal cues and/or touching/steadying and/or contact guard assistance as patient completes activity. Assistance may be provided throughout the activity or intermittently. 3-Partial/Moderate Assistance-helper does LESS THAN HALF the effort. [place] lifts, holds or supports trunk or limbs, but provides less than half the effort. 2-Substantial/Maximal Assistance-helper does MORE THAN HALF the effort. [place] lifts or holds trunk or limbs and provides more than half the effort. 8-Cyeiosbim-pcskng does ALL the effort. Patient does none of the effort to complete the activity. Or, the assistance of 2 or more helpers is required for the patient to complete the activity. If activity was not attempted, code reason: 7-Patient Refused. 9-Not Applicable-not attempted and the patient did not perform the activity before the current illness, exacerbation or injury. 10-Not Attempted due to Environmental Limitations-(lack of equipment, weather restraints, etc.). 88-Not Attempted due to Medical Conditions or Safety Concerns. Roll Left & Right (QC): 4 Lying to Sitting/Side of Bed(Q: 4 Sit to Stand (QC): 4 Weight Bearing Right Lower Extremity: Right Weight Bearing/Tolerated Left Lower Extremity: Left Full Weight Bearing Gait Training Does the Patient Walk?: Yes Distance: 125' Walk 10 feet (QC): 3 Walk 50 ft with 2 Turns(QC): 3 Gait Assistive Device: FWW Antalgic, slow, flat foot walking Assessment Patient able to perform bed mobility and standing with CGA-Beth[place] and improved mobility than previous treatment. Patient ambulated 125' with FWW with slow, antalgic gait, but able to ambulate further and slightly more confidently than previously. Patient returned to room and sat in recliner at conclusion of treatment with legs elevated. PT Half-Way Goals Personal Injury Law Specialist Goals PT Half-Way Goals Time Frame: May 24, 2019 Roll Left & Right (QC): 6 Sit to Lying (QC): 4 Lying-Sitting on Side/Bed(QC): 4 (SBA) Sit to Stand (QC): 4 (SBA) Chair/Dcf-yp-Cfsej Xfer(QC): 4 (SBA) Toilet Transfer (QC): 9 Car Transfer (QC): 9 Does the Patient Walk: Yes Walk 10 feet (QC): 4 (SBA) Walk 50ft with 2 Turns (QC): 4 (SBA) Walk 150 ft (QC): 4 (SBA) Walking 10ft on Uneven Surface: 9 1 Step (curb) (QC): 4 (CGA) 4 Steps (QC): 9 12 Steps (QC): 9 Picking up an Object (QC): 9 Does the Pt use WC or Scooter?: No Type: N/A Type: N/A PT Plan Treatment/Plan Treatment Plan: Continue Plan of Care Treatment Plan: Bed Mobility, Education, Functional Activity Martín, Functional Strength, Gait, Safety, Therapeutic Exercise, Transfers Treatment Duration: May 24, 2019 Frequency: 11 times per week Estimated Hrs Per Day: .25 hour per day Patient and/or Family Agrees t: Yes Time/GCodes Time In: 1257 Time Out: 1316 Total Billed Treatment Time: 19 Total Billed Treatment 1 visit FA 19min HELEN STEWART PT May 18, 2019 14:59 POS
--- NOTE | 2019-05-18 23:47 | DISCHARGE SUMMARY ---
DATE OF SERVICE: DIAGNOSES: 1. Right knee primary osteoarthritis. 2. Diabetes. 3. Hypertension. PROCEDURE: Right total knee arthroplasty. SUMMARY: The patient is a 58-year-old female who underwent a right total knee arthroplasty admission. Postoperatively, she did very well. At time of discharge, her wound was clean and dry. She had cleared physical therapy. She was tolerating diet well and tolerating pain with oral pain medication. CONDITION AT DISCHARGE: Good. DISCHARGE DIET: Regular. FOLLOWUP: Followup is in three weeks. DISCHARGE MEDICATIONS: Home medications, aspirin and Percocet as needed for pain. Job ID: [id number] DocumentID: [id number] Dictated Date: 05/18/2019 18:31:53 Manager Van Date: 05/18/2019 23:46:54 Dictated By: AISHA LEE MD
[2019-05-19] MEDS: oxyCODONE/APAP 5/325MG (PERCOCET 5) TABLET PO PRN ×2 (01:46→05:42)
[2019-05-19] MEDS: NS IV 1000 ML 1,000 ML IV SCH (01:46)
[2019-05-19 04:40] VITALS: BP 181/83
[2019-05-19] MEDS: MULTIVIT W/MINERALS TAB (THERAGRAN M) PO SCH (05:41)
[2019-05-19] MEDS: ENOXAPARIN 30 MG/0.3 ML (LOVENOX) SYR SC SCH (05:42)
[2019-05-19 05:55] LABS: BASOPHILS % (AUTO) 0 % (0-10); EOSINOPHILS % (AUTO) 1 % (0-10); HEMATOCRIT 35 % (35-52); HEMOGLOBIN 11.3 G/DL (11.5-16.0); LYMPHOCYTES # (AUTO) 1.7 X 10^3 (1.0-4.0); LYMPHOCYTES % (AUTO) 26 % (12-44); MEAN CORPUSCULAR HEMOGLOBIN 31 PG (25-34); MEAN CORPUSCULAR HGB CONC 33 G/DL (32-36); MEAN CORPUSCULAR VOLUME 94 FL (80-99); MEAN PLATELET VOLUME 9.2 FL (7.4-10.4); MONOCYTES # (AUTO) 0.6 X 10^3 (0.0-1.0); MONOCYTES % (AUTO) 10 % (0-12); NEUTROPHILS # (AUTO) 4.1 X 10^3 (1.8-7.8); NEUTROPHILS % (AUTO) 64 % (42-75); PLATELET COUNT 182 10^3/uL (130-400); RED CELL DISTRIBUTION WIDTH 14.5 % (10.0-14.5); WHITE BLOOD COUNT 6.5 10^3/uL (4.3-11.0)
[2019-05-19 06:12] LABS: ALANINE AMINOTRANSFERASE 32 U/L (0-55); ALBUMIN 3.9 GM/DL (3.2-4.5); ALKALINE PHOSPHATASE 111 U/L (40-136); BILIRUBIN,TOTAL 0.9 MG/DL (0.1-1.0); BUN/CREATININE RATIO 14; CALCIUM 8.6 MG/DL (8.5-10.1); CARBON DIOXIDE 19 MMOL/L (21-32); CHLORIDE 106 MMOL/L (98-107); CREATININE SERUM 0.72 MG/DL (0.60-1.30); GFR ESTIMATED > 60; GLUCOSE 137 MG/DL (70-105); POTASSIUM 3.7 MMOL/L (3.6-5.0); SODIUM 140 MMOL/L (135-145); TOTAL PROTEIN 6.8 GM/DL (6.4-8.2)
--- NOTE | 2019-05-19 07:05 | Progress Note ---
Standard Progress Note Progress Notes/Assess & Plan Date Seen by a Provider: May 19, 2019 Time Seen by a Provider: 07:04 Progress/Assessment & Plan post op check No complaints radiographs--HW well positioned without fracture RLE--2 plus DP pulse with brisk cap refill. Intact sensation to light touch throughout. Intact DF and PF of toes and ankle s/p RTKA mobilize as able Final Diagnosis no complaints Vital Signs Date Time Temp Pulse Resp B/P (MAP) Pulse Ox O2 Delivery O2 Flow Rate FiO2 05/19/19 04:40 37.2 87 20 181/83 (115) 87 Room Air 05/18/19 22:58 36.8 76 20 151/79 (103) 97 Nasal Cannula 2.00 05/18/19 20:51 Room Air 05/18/19 20:00 36.9 94 16 156/75 (102) 94 Nasal Cannula 2.00 05/18/19 15:50 37.0 99 22 183/79 (113) 93 Room Air 05/18/19 12:00 36.6 87 20 128/58 (81) 94 Room Air 05/18/19 09:00 Room Air 05/18/19 08:00 37.2 79 18 134/65 (88) 93 Room Air I & O 05/19/19 07:00 Intake Total 3810 ml Balance 3810 ml Laboratory Tests Test 05/19/19 04:45 Range/Units White Blood Count 6.5 4.3-11.0 10^3/uL Red Blood Count 3.69 L 4.35-5.85 10^6/uL Hemoglobin 11.3 L 11.5-16.0 G/DL Hematocrit 35 35-52 % Mean Corpuscular Volume 94 80-99 FL Mean Corpuscular Hemoglobin 31 25-34 PG Mean Corpuscular Hemoglobin Concent 33 32-36 G/DL Red Cell Distribution Width 14.5 10.0-14.5 % Platelet Count 182 130-400 10^3/uL Mean Platelet Volume 9.2 7.4-10.4 FL Neutrophils (%) (Auto) 64 42-75 % Lymphocytes (%) (Auto) 26 12-44 % Monocytes (%) (Auto) 10 0-12 % Eosinophils (%) (Auto) 1 0-10 % Basophils (%) (Auto) 0 0-10 % Neutrophils # (Auto) 4.1 1.8-7.8 X 10^3 Lymphocytes # (Auto) 1.7 1.0-4.0 X 10^3 Monocytes # (Auto) 0.6 0.0-1.0 X 10^3 Eosinophils # (Auto) 0.0 0.0-0.3 10^3/uL Basophils # (Auto) 0.0 0.0-0.1 10^3/uL Sodium Level 140 135-145 MMOL/L Potassium Level 3.7 3.6-5.0 MMOL/L Chloride Level 106 98-107 MMOL/L Carbon Dioxide Level 19 L 21-32 MMOL/L Anion Gap 15 H 5-14 MMOL/L Blood Urea Nitrogen 10 7-18 MG/DL Creatinine 0.72 0.60-1.30 MG/DL Estimat Glomerular Filtration Rate > 60 BUN/Creatinine Ratio 14 Glucose Level 137 H 70-105 MG/DL Calcium Level 8.6 8.5-10.1 MG/DL Corrected Calcium 8.7 8.5-10.1 MG/DL Total Bilirubin 0.9 0.1-1.0 MG/DL Aspartate Amino Transf (AST/SGOT) 19 5-34 U/L Alanine Aminotransferase (ALT/SGPT) 32 0-55 U/L Alkaline Phosphatase 111 40-136 U/L Total Protein 6.8 6.4-8.2 GM/DL Albumin 3.9 3.2-4.5 GM/DL RLE--incision clean and dry. No calf tenderness. Neg Valencia's s/p RTKA doing well DC after PT today AISHA LEE MD May 19, 2019 07:05 POS
[2019-05-19] MEDS ORDERED: morphine INJ 4 MG/ML 1 ML (VIAL/SYRINGE) IVP PRN (07:15)
[2019-05-19 08:00] VITALS: BP 193/88
[2019-05-19] MEDS: ONDANSETRON 4 MG/2 ML (SDV) Z0FRAN IVP PRN (08:05)
[2019-05-19] MEDS: SENNA W/DOCUSATE (SENOKOT S) TABLET PO SCH (08:06)
[2019-05-19] MEDS: ASPIRIN E.C. 81 MG (ECOTRIN) TAB PO SCH (08:06)
[2019-05-19] MEDS ORDERED: ATENOLOL 50 MG (TENORMIN) TAB PO SCH (09:00)
[2019-05-19] MEDS ORDERED: DULoxetine 30 MG (CYMBALTA) CAP PO SCH (09:00)
--- NOTE | 2019-05-19 10:28 | Physical Therapy Daily Note ---
PT Daily Note-Current Subjective Patient agrees to PT at this time. States she has been feeling nauseous. Reports 7/10 pain in RLE. Pain Numeric Pain Scale: 7 Location: Right Location Body Site: Knee Pain Description: Acute Mental Status Patient Orientation: Person, Place, Time, Situation Transfers SCALE: Activities may be completed with or without assistive devices. 8-Slrxhkbgga-geyszez completes the activity by him/herself with no assistance from a helper. 5-Set-up or Clean-up Assistance-helper sets up or cleans up; patient completes activity. Marianna assists only prior to or following the activity. 4-Supervision or Touching Assistance-helper provides verbal cues and/or touching/steadying and/or contact guard assistance as patient completes activity. Assistance may be provided throughout the activity or intermittently. 3-Partial/Moderate Assistance-helper does LESS THAN HALF the effort. Marianna lifts, holds or supports trunk or limbs, but provides less than half the effort. 2-Substantial/Maximal Assistance-helper does MORE THAN HALF the effort. Marianna lifts or holds trunk or limbs and provides more than half the effort. 6-Nzhaqowod-ypoltx does ALL the effort. Patient does none of the effort to complete the activity. Or, the assistance of 2 or more helpers is required for the patient to complete the activity. If activity was not attempted, code reason: 7-Patient Refused. 9-Not Applicable-not attempted and the patient did not perform the activity before the current illness, exacerbation or injury. 10-Not Attempted due to Environmental Limitations-(lack of equipment, weather restraints, etc.). 88-Not Attempted due to Medical Conditions or Safety Concerns. Lying to Sitting/Side of Bed(Q: 6 Sit to Stand (QC): 6 Toilet Transfer (QC): 6 Weight Bearing Right Lower Extremity: Right Weight Bearing/Tolerated Left Lower Extremity: Left Full Weight Bearing Gait Training Does the Patient Walk?: Yes Distance: 200' x 2 Walk 10 feet (QC): 6 Walk 50 ft with 2 Turns(QC): 6 Walk 150 ft (QC): 6 Gait Assistive Device: FWW Antalgic, slow pace Stair Training Stair Training: Handrails/: 1 handrail, uses walker #of Steps: 2 1 Step (curb) (QC): 3 Stairs: Pattern: Step to Mod assist for safety and verbal cues for walker placement and gait pattern. Exercises Seated Therapy Exercises: Long arc quads Seated Reps: 30 Assessment Initiated treatment with LAQ with patient demonstrating fair strength and ROM. Patient ambulated 200' during session with FWW with antalgic gait, slow pace, and UE weight bearing, requiring some rest breaks. Patient was independent in bed mobility, toilet transfer, and ambulation to prepare for discharge to home. Patient performed 2 stairs with 1 railing and walker, requiring assistance for safety and cues for walker placement and gait pattern. Patient seated in recliner at conclusion of treatment. PT Switch Maker Goals Correction Goals PT Correction Goals Time Frame: May 24, 2019 Roll Left & Right (QC): 6 Sit to Lying (QC): 4 Lying-Sitting on Side/Bed(QC): 4 (SBA) Sit to Stand (QC): 4 (SBA) Chair/Gvm-mo-Eujqw Xfer(QC): 4 (SBA) Toilet Transfer (QC): 9 Car Transfer (QC): 9 Does the Patient Walk: Yes Walk 10 feet (QC): 4 (SBA) Walk 50ft with 2 Turns (QC): 4 (SBA) Walk 150 ft (QC): 4 (SBA) Walking 10ft on Uneven Surface: 9 1 Step (curb) (QC): 4 (CGA) 4 Steps (QC): 9 12 Steps (QC): 9 Picking up an Object (QC): 9 Does the Pt use WC or Scooter?: No Type: N/A Type: N/A PT Plan Treatment/Plan Treatment Plan: Continue Plan of Care Treatment Plan: Bed Mobility, Education, Functional Activity Martín, Functional Strength, Gait, Safety, Therapeutic Exercise, Transfers Treatment Duration: May 24, 2019 Frequency: 11 times per week Estimated Hrs Per Day: .25 hour per day Patient and/or Family Agrees t: Yes Time/GCodes Time In: 823 Time Out: 852 Total Billed Treatment Time: 29 Total Billed Treatment 1 visit FA x2 29min HELEN STEWART PT May 19, 2019 10:28 POS
== END 2019-05-19 11:08 | disposition home health service (06) | DRG 470 ==
LOC: 4TH 05-17 05:47 → SURG 05-17 05:48 → EDSTATUS 05-17 08:00 → 4TH 05-17 09:58
PROVIDERS: ADMIT Orthopaedic Surgery; ATTEND Orthopaedic Surgery
PROC: 0SRC0J9 Replacement of Right Knee Joint with Synthetic Substitute, Cemented, Open Approach (ICD-10-PCS; principal; 2019-05-17 07:34)
DX: M17.11 Unilateral primary osteoarthritis, right knee (principal); I10 Essential (primary) hypertension; R73.03 Prediabetes; K21.9 Gastro-esophageal reflux disease without esophagitis; F41.9 Anxiety disorder, unspecified; E66.9 Obesity, unspecified; Z68.31 Body mass index [BMI] 31.0-31.9, adult; Z87.891 Personal history of nicotine dependence
CPT/HCPCS: 36415; 73560; 80053; 82962; 85025; 86850; 86900; 86901; 94664

== ENCOUNTER 2019-05-11 13:20 | Outpatient (CLI) | payer MEDICAID ==
[~2019-05-11] VITALS: Ht 167 cm; Wt 87.0 kg
[2019-05-11] MEDS ORDERED: DULO30CA49 PO (13:35)
[2019-05-11] MEDS ORDERED: ATEN50TA PO (13:35)
[2019-05-11] MEDS ORDERED: MELO15TA39 PO (13:35)
[2019-05-11 13:38] VITALS: BP 151/88
[2019-05-11 14:13] LABS: BILIRUBIN,URINE NEGATIVE (NEGATIVE); CLARITY,URINE CLEAR; COLOR,URINE YELLOW; GLUCOSE, URINE (UA) NEGATIVE (NEGATIVE); KETONES,URINE NEGATIVE (NEGATIVE); LEUKOCYTE ESTERASE ,URINE NEGATIVE (NEGATIVE); NITRITE,URINE NEGATIVE (NEGATIVE); PROTEIN,URINE NEGATIVE (NEGATIVE)
[2019-05-11 14:14] LABS: BASOPHILS % (AUTO) 0 % (0-10); EOSINOPHILS # (AUTO) 0.1 10^3/uL (0.0-0.3); EOSINOPHILS % (AUTO) 1 % (0-10); HEMATOCRIT 42 % (35-52); HEMOGLOBIN 14.1 G/DL (11.5-16.0); LYMPHOCYTES # (AUTO) 2.3 X 10^3 (1.0-4.0); LYMPHOCYTES % (AUTO) 37 % (12-44); MEAN CORPUSCULAR HEMOGLOBIN 31 PG (25-34); MEAN CORPUSCULAR HGB CONC 34 G/DL (32-36); MEAN CORPUSCULAR VOLUME 91 FL (80-99); MONOCYTES # (AUTO) 0.5 X 10^3 (0.0-1.0); MONOCYTES % (AUTO) 9 % (0-12); NEUTROPHILS # (AUTO) 3.4 X 10^3 (1.8-7.8); NEUTROPHILS % (AUTO) 54 % (42-75); PLATELET COUNT 245 10^3/uL (130-400); WHITE BLOOD COUNT 6.4 10^3/uL (4.3-11.0)
[2019-05-11 14:22] LABS: BACTERIA,URINE NEGATIVE /HPF; RBC,URINE 0-2 /HPF; SQUAMOUS EPITHELIAL CELL,UR 0-2 /HPF
[2019-05-11 14:32] LABS: INR 0.9 (0.8-1.4); PROTHROMBIN TIME PATIENT 12.8 SEC (12.2-14.7)
--- NOTE | 2019-05-11 14:35 | Diagnostic Imaging Report ---
INDICATION: Preop knee surgery, osteoarthritis. PA and lateral chest. FINDINGS: Heart size and pulmonary vascularity are normal. Lungs are clear. There are no effusions or pneumothoraces. IMPRESSION: Negative chest. Dictated by: Dictated on workstation # [id number]
[2019-05-11 14:39] LABS: ALANINE AMINOTRANSFERASE 54 U/L (0-55); ALBUMIN 4.5 GM/DL (3.2-4.5); ALKALINE PHOSPHATASE 137 U/L (40-136); BILIRUBIN,TOTAL 0.5 MG/DL (0.1-1.0); BUN/CREATININE RATIO 21; CALCIUM 9.6 MG/DL (8.5-10.1); CARBON DIOXIDE 22 MMOL/L (21-32); CHLORIDE 106 MMOL/L (98-107); CREATININE SERUM 0.89 MG/DL (0.60-1.30); GFR ESTIMATED > 60; GLUCOSE 97 MG/DL (70-105); SODIUM 138 MMOL/L (135-145); TOTAL PROTEIN 7.8 GM/DL (6.4-8.2)
[2019-05-11 14:45] LABS: ERYTHROCYTE SEDIMENTATION RATE 37 MM/HR (0-30)
== END 2019-05-11 15:29 ==
LOC: PREOP 13:20
PROVIDERS: ATTEND Orthopaedic Surgery
DX: Z01.818 Encounter for other preprocedural examination (principal); Z01.812 Encounter for preprocedural laboratory examination; M17.11 Unilateral primary osteoarthritis, right knee
CPT/HCPCS: 36415; 71046; 80053; 81000; 85025; 85610; 85652; 86850; 86900; 86901; 87081; 93005

== ENCOUNTER 2019-06-08 15:01 | Observation (INO) | payer MEDICAID ==
[~2019-06-08] VITALS: Ht 170 cm; Wt 86.9 kg
[~2019-06-08 15:01] MED LIST: ATEN50TA PO; DULO30CA49 PO; MELO15TA39 PO; OXYC1TAB87 PO
--- NOTE | 2019-06-08 15:08 | ED General ---
General Stated Complaint: TACHYCARDIA History of Present Illness Date Seen by Provider: Jun 08, 2019 Time Seen by Provider: 15:08 Initial Comments Patient is a 58-year-old female who comes to the emergency department today for evaluation of tachycardia. The patient was evaluated in her primary care physician's office just prior to ER presentation and she was referred here for further eval. The patient is 2 weeks status post total right knee replacement. She has been doing well at home other than complaining of some mild tenderness at the surgery site and in the right calf. She was recently evaluated by her orthopedist 2 days earlier who felt the wound was healing adequately. Today, patient presented to her physician's office for routine blood pressure monitoring after her atenolol had recently been stopped. She was noted to have a heart rate in the 140s and was referred to the emergency department. The patient does not complain of chest pain. She does complain of some dyspnea on exertion has a chronic symptom but also it is mildly worse since her surgery. She complains of "feeling shaky" but this symptom has been over many weeks to months. She denies dizziness or lightheadedness. She denies palpitations. Allergies and Home Medications Allergies Coded Allergies: codeine (Verified Allergy, Mild, RASH, 05/11/19) Home Medications Atenolol 50 Mg Tablet, 50 MG PO DAILY, (Reported) Duloxetine HCl 30 Mg Capsule.dr, 30 MG PO DAILY, (Reported) Meloxicam 15 Mg Tablet, 15 MG PO DAILY, (Reported) Oxycodone HCl/Acetaminophen 1 Each Tablet, 1 TAB PO Q4H Prescribed by: AISHA LEE on 05/17/19 0727 Patient Home Medication List Home Medication List Reviewed: Yes Review of Systems Review of Systems Constitutional: malaise EENTM: no symptoms reported Respiratory: dyspnea on exertion Cardiovascular: no symptoms reported Gastrointestinal: no symptoms reported Genitourinary: no symptoms reported Musculoskeletal: other Skin: see HPI Psychiatric/Neurological: No Symptoms Reported All Other Systems Reviewed Negative Unless Noted: Yes Past Xqmomrh-Uybbek-Yxwpbv Hx Patient Social History Former Smoker, Quit: May 11, 1980 Recent Foreign Travel: No Recent Hopitalizations: No Seasonal Allergies Seasonal Allergies: No (MILD) Past Medical History Surgeries: Yes (BREAST BIOPSY) Respiratory: No Cardiac: Yes Neurological: No Sexually Transmitted Disease: No HIV/AIDS: No Genitourinary: No Gastrointestinal: Yes Gastroesophageal Reflux, Chronic Constipation, Chronic Diarrhea Musculoskeletal: Yes (OSTEOARTHRITIS) Arthritis, Chronic Back Pain Endocrine: Yes (BOARDER LINE DIABETES) HEENT: Yes (GLASSES) Loss of Vision: Denies Hearing Impairment: Denies Cancer: No Psychosocial: Yes (HX ANXIETY) Integumentary: No Blood Disorders: No Adverse Reaction/Blood Tranf: No (N/A) Family Medical History Alcoholism Cardiovascular disease Diabetes mellitus Hypertension Myocardial infarction Physical Exam Vital Signs Vital Signs - First Documented 06/08/19 15:06 Temp 36.8 Pulse 112 Resp 16 B/P (MAP) 162/94 (116) Pulse Ox 98 O2 Delivery Room Air Capillary Refill : Height, Weight, BMI Height: '" Weight: lbs. oz. kg; 31.19 BMI Method: General Appearance: No Apparent Distress, WD/WN HEENT: PERRL/EOMI Neck: Full Range of Motion, Non Tender Respiratory: Lungs Clear, Normal Breath Sounds Cardiovascular: Regular Rate, Rhythm, No Murmur, Normal Peripheral Pulses Gastrointestinal: Non Tender, Soft Extremity: Normal Capillary Refill, Normal Inspection, No Calf Tenderness Neurologic/Psychiatric: Alert, Oriented x3, No Motor/Sensory Deficits Progress/Results/Core Measures Suspected Sepsis SIRS Temperature: Pulse: Respiratory Rate: Laboratory Tests 06/08/19 15:21: White Blood Count 5.6 Blood Pressure / Mean: Laboratory Tests 06/08/19 15:21: Creatinine 0.75, Platelet Count 371, Total Bilirubin 0.4 Results/Orders Lab Results Laboratory Tests Test 06/08/19 15:21 06/08/19 16:59 Range/Units White Blood Count 5.6 4.3-11.0 10^3/uL Red Blood Count 4.33 L 4.35-5.85 10^6/uL Hemoglobin 13.3 11.5-16.0 G/DL Hematocrit 40 35-52 % Mean Corpuscular Volume 93 80-99 FL Mean Corpuscular Hemoglobin 31 25-34 PG Mean Corpuscular Hemoglobin Concent 33 32-36 G/DL Red Cell Distribution Width 13.8 10.0-14.5 % Platelet Count 371 130-400 10^3/uL Mean Platelet Volume 8.3 7.4-10.4 FL Neutrophils (%) (Auto) 61 42-75 % Lymphocytes (%) (Auto) 28 12-44 % Monocytes (%) (Auto) 9 0-12 % Eosinophils (%) (Auto) 1 0-10 % Basophils (%) (Auto) 1 0-10 % Neutrophils # (Auto) 3.4 1.8-7.8 X 10^3 Lymphocytes # (Auto) 1.6 1.0-4.0 X 10^3 Monocytes # (Auto) 0.5 0.0-1.0 X 10^3 Eosinophils # (Auto) 0.1 0.0-0.3 10^3/uL Basophils # (Auto) 0.1 0.0-0.1 10^3/uL D-Dimer 4.93 H 0.00-0.49 UG/ML Sodium Level 137 135-145 MMOL/L Potassium Level 3.8 3.6-5.0 MMOL/L Chloride Level 99 98-107 MMOL/L Carbon Dioxide Level 24 21-32 MMOL/L Anion Gap 14 5-14 MMOL/L Blood Urea Nitrogen 17 7-18 MG/DL Creatinine 0.75 0.60-1.30 MG/DL Estimat Glomerular Filtration Rate > 60 BUN/Creatinine Ratio 23 Glucose Level 136 H 70-105 MG/DL Calcium Level 9.9 8.5-10.1 MG/DL Corrected Calcium 9.7 8.5-10.1 MG/DL Total Bilirubin 0.4 0.1-1.0 MG/DL Aspartate Amino Transf (AST/SGOT) 25 5-34 U/L Alanine Aminotransferase (ALT/SGPT) 33 0-55 U/L Alkaline Phosphatase 213 H 40-136 U/L Troponin I < 0.30 <0.30 NG/ML Pro-B-Type Natriuretic Peptide 43.3 <75.0 PG/ML Total Protein 7.9 6.4-8.2 GM/DL Albumin 4.3 3.2-4.5 GM/DL Urine Color YELLOW Urine Clarity CLEAR Urine pH 5.0 5-9 Urine Specific [place] 1.010 L 1.016-1.022 Urine Protein NEGATIVE NEGATIVE Urine Glucose (UA) NEGATIVE NEGATIVE Urine Ketones NEGATIVE NEGATIVE Urine Nitrite NEGATIVE NEGATIVE Urine Bilirubin NEGATIVE NEGATIVE Urine Urobilinogen 0.2 < = 1.0 MG/DL Urine Leukocyte Esterase NEGATIVE NEGATIVE Urine RBC (Auto) NEGATIVE NEGATIVE Urine RBC NONE /HPF Urine WBC RARE /HPF Urine Squamous Epithelial Cells 0-2 /HPF Urine Renal Epithelial Cells 0-2 /HPF Urine Crystals NONE /LPF Urine Bacteria NEGATIVE /HPF Urine Casts NONE /LPF Urine Mucus NEGATIVE /LPF Urine Culture Indicated NO My Orders Orders - SADAF PRAKASH DO Ed Iv/Invasive Line Start (06/08/19 15:06) Cbc With Automated Diff (06/08/19 15:06) Comprehensive Metabolic Panel (06/08/19 15:06) Urinalysis (06/08/19 15:06) Troponin I Fs (06/08/19 15:06) Ekg Tracing (06/08/19 15:06) Orthostatic Vital Signs (Adult (06/08/19 15:06) Fibrin Degradation Products (06/08/19 15:14) Ns Iv 1000 Ml (Sodium Chloride 0.9%) (06/08/19 15:30) Us Venous Lower Ext Rt (06/08/19 15:40) Probnp Fs (06/08/19 15:55) Ns Iv 1000 Ml (Sodium Chloride 0.9%) (06/08/19 16:30) Ct Angio Chest W (06/08/19 16:19) Iohexol Injection (Omnipaque 350 Mg/Ml 1 (06/08/19 16:45) Received Contrast (Hold Metformin- Contr (06/08/19 16:45) Sodium Chloride Flush (Catheter Flush Sy (06/08/19 16:45) Ns (Ivpb) (Sodium Chloride 0.9% Ivpb Bag (06/08/19 16:45) Ns Iv 1000 Ml (Sodium Chloride 0.9%) (06/08/19 17:45) Medications Given in ED Current Medications Medications Dose Ordered Sig/Jey Route Start Time Stop Time Status Last Admin Dose Admin Iohexol 125 ml ONCE ONCE IV 06/08/19 16:45 06/08/19 16:46 DC 06/08/19 17:03 125 ML Sodium Chloride 10 ml NEEDED PRN IV 06/08/19 16:45 06/08/19 17:03 10 ML Sodium Chloride 100 ml ONCE ONCE IV 06/08/19 16:45 06/08/19 16:46 DC 06/08/19 17:03 100 ML Vital Signs/I&O 06/08/19 06/08/19 15:06 15:25 Temp 36.8 Pulse 112 100 123 145 Resp 16 B/P (MAP) 162/94 (116) 165/83 (110) 152/84 (106) 150/108 (122) Pulse Ox 98 O2 Delivery Room Air Capillary Refill : Progress Note : Time: 15:37 Progress Note Patient is evaluated immediately on arrival to her room. On physical exam, the patient is mildly tachycardic at rest. Orthostatic vital signs were completed and the patient's heart rate increased from 100-145 from lying to standing. Her blood pressure remained in the 140s to 150s and did not drop but she was subjectively symptomatic. Today, we will give her IV fluids and check basic labs. Will rule out DVT or pulmonary embolus, initially with d-dimer. If this is elevated, we will proceed to ultrasound and CT angiography. 17:00: Dimer noted be elevated and CTA chest was ordered. Results pending. DVT study of right LE did not reveal acute findings of DVT. UA non-infected. Hgb stable. Troponin and BNP not elevated. EKG non-acute. 17:45: CT angiography of the chest is returned. No acute pulmonary embolus is present. Patient currently feels improved and is voiding. Repeat orthostatics are completed and her heart rate does drop from 100 to 1:30 again although her subjective symptoms are improved. We'll give an additional liter of normal saline and recheck patient. 18:05: I had a discussion with the patient about her CT report. There is no pulmonary embolus seen but the patient was found to have a spiculated mass in the right breast. Patient states it has been many years since her last mammography although she did previously have a biopsy of a mass in the right breast. I encouraged the patient follow up with her primary care physician and seek mammography in the short term future. Otherwise, the patient is feeling much improved. We'll give one additional liter of normal saline and repeat vital signs. Anticipate discharge home. Transfer care to Dr. Syed. Please follow-up on orthostasis. ECG Initial ECG Impression Date: Jun 08, 2019 Initial ECG Impression Time: 15:40 Initial ECG Rate: 97 Initial ECG Impression: Normal Departure Impression Primary Impression: Dehydration Disposition: 01 HOME, SELF-CARE Condition: Improved Departure-Patient Inst. Referrals: DOM NIX MD (PCP/Family) Primary Care Physician SADAF PRAKASH DO Jun 08, 2019 15:08 POS
[2019-06-08] MEDS ORDERED: NS IV 1000 ML 1,000 ML IV SCH ×4 (15:15→17:45)
[2019-06-08 15:25] VITALS: BP_SYST 150; BP_SYST 152; BP_SYST 165; BP_DIAS 108; BP_DIAS 83; BP_DIAS 84
[2019-06-08 15:32] LABS: HEMATOCRIT 40 % (35-52); HEMOGLOBIN 13.3 G/DL (11.5-16.0); MEAN CORPUSCULAR HEMOGLOBIN 31 PG (25-34); MEAN CORPUSCULAR HGB CONC 33 G/DL (32-36); MEAN CORPUSCULAR VOLUME 93 FL (80-99); WHITE BLOOD COUNT 5.6 10^3/uL (4.3-11.0)
[2019-06-08 15:33] LABS: BASOPHILS # (AUTO) 0.1 10^3/uL (0.0-0.1); BASOPHILS % (AUTO) 1 % (0-10); EOSINOPHILS # (AUTO) 0.1 10^3/uL (0.0-0.3); EOSINOPHILS % (AUTO) 1 % (0-10); LYMPHOCYTES # (AUTO) 1.6 X 10^3 (1.0-4.0); LYMPHOCYTES % (AUTO) 28 % (12-44); MEAN PLATELET VOLUME 8.3 FL (7.4-10.4); MONOCYTES # (AUTO) 0.5 X 10^3 (0.0-1.0); MONOCYTES % (AUTO) 9 % (0-12); NEUTROPHILS # (AUTO) 3.4 X 10^3 (1.8-7.8); NEUTROPHILS % (AUTO) 61 % (42-75); PLATELET COUNT 371 10^3/uL (130-400); RED CELL DISTRIBUTION WIDTH 13.8 % (10.0-14.5)
[2019-06-08 15:55] LABS: ALANINE AMINOTRANSFERASE 33 U/L (0-55); ALKALINE PHOSPHATASE 213 U/L (40-136); BILIRUBIN,TOTAL 0.4 MG/DL (0.1-1.0); BUN/CREATININE RATIO 23; CALCIUM 9.9 MG/DL (8.5-10.1); CARBON DIOXIDE 24 MMOL/L (21-32); CHLORIDE 99 MMOL/L (98-107); CREATININE SERUM 0.75 MG/DL (0.60-1.30); GFR ESTIMATED > 60; GLUCOSE 136 MG/DL (70-105); POTASSIUM 3.8 MMOL/L (3.6-5.0); SODIUM 137 MMOL/L (135-145)
[2019-06-08 15:56] LABS: ALBUMIN 4.3 GM/DL (3.2-4.5); TOTAL PROTEIN 7.9 GM/DL (6.4-8.2)
--- NOTE | 2019-06-08 16:36 | Diagnostic Imaging Report ---
PROCEDURE: US right lower extremity venous. TECHNIQUE: Multiple real-time grayscale images were obtained over the right lower extremity in various projections. Additional spectral analysis and color Doppler duplex images were also obtained. INDICATION: Recent surgery with right leg swelling EXAMINATION: Grayscale and color Doppler evaluation of the deep veins of the right lower extremity were performed with waveform analysis. FINDINGS: Continuous venous flow is present. No intraluminal filling defect is identified. There is normal compressibility and response to augmentation. No abnormal perivascular fluid collection is identified. IMPRESSION: No ultrasound evidence of right lower extremity deep venous thrombosis. Dictated by: Dictated on workstation # [id number]
[2019-06-08] MEDS ORDERED: HOLD METFORMIN - RECEIVED CONTRAST 20 ML VIAL IV SCH (16:45)
[2019-06-08] MEDS ORDERED: NS 100 ML (IVPB) BAG IV ONE (16:45)
[2019-06-08] MEDS ORDERED: CATHETER FLUSH 10 ML SYR IV PRN (16:45)
[2019-06-08] MEDS ORDERED: IOHEXOL 350 MG/ML 150 ML (OMNIPAQUE 350) VIAL IV ONE (16:45)
[2019-06-08 17:15] LABS: CLARITY,URINE CLEAR; COLOR,URINE YELLOW; GLUCOSE, URINE (UA) NEGATIVE (NEGATIVE); PROTEIN,URINE NEGATIVE (NEGATIVE)
[2019-06-08 17:16] LABS: BACTERIA,URINE NEGATIVE /HPF; BILIRUBIN,URINE NEGATIVE (NEGATIVE); KETONES,URINE NEGATIVE (NEGATIVE); LEUKOCYTE ESTERASE ,URINE NEGATIVE (NEGATIVE); NITRITE,URINE NEGATIVE (NEGATIVE); RENAL EPITHELIAL CELLS,URINE 0-2 /HPF; SQUAMOUS EPITHELIAL CELL,UR 0-2 /HPF; WBC,URINE RARE /HPF
--- NOTE | 2019-06-08 17:32 | Diagnostic Imaging Report ---
PROCEDURE: CT angiography of the chest with contrast. TECHNIQUE: Multiple contiguous axial images were obtained through the chest after uneventful bolus administration of intravenous contrast. 3D reconstructed CTA MIP acquisitions were also performed. Auto Exposure Controls were utilized during the CT exam to meet ALARA standards for radiation dose reduction. INDICATION: Dyspnea. Tachycardia. COMPARISON: Chest radiograph 05/11/2019. FINDINGS: No pulmonary emboli. No thoracic aortic aneurysm or dissection. Mild linear scarring or atelectasis in the right lung base. Mild emphysematous changes. Lungs are otherwise clear. No pleural effusion or pneumothorax. No endobronchial lesions. Normal heart size. No pericardial effusion. No mediastinal, hilar or axillary lymphadenopathy. Small esophageal hiatal hernia. Spiculated soft tissue mass in the right breast measures up to 2.0 cm. No acute osseous findings. IMPRESSION: 1. No pulmonary emboli. No thoracic aortic aneurysm or dissection. 2. Mild atelectasis or scarring in the lung bases. 3. Mild centrilobular emphysema. 4. Indeterminate spiculated soft tissue nodule in the right breast measuring up to 2.0 cm. If this is an unknown clinical entity, recommend further evaluation with nonemergent diagnostic mammography. Dictated by: Dictated on workstation # [id number]
[2019-06-08 17:45] VITALS: BP_SYST 165; BP_SYST 180; BP_SYST 195; BP_DIAS 101; BP_DIAS 70; BP_DIAS 96
--- NOTE | 2019-06-08 20:11 | NUR ---
ATTEMPT X3 TO CALL PT SON. WITH EACH ATTEMPT THE LINE SAYS IT IS DISCONNECTED AND NO LONGER IN SERVICE.
--- NOTE | 2019-06-08 21:05 | NUR ---
BENITEZ BUTLER Santos admitted to room 408-1, with an admitting diagnosis of Tachycardia, Dyspnea, and Lightheadedness, on 06/08/[address] [facility] via EMS, accompanied by EMS and .BENITEZ BUTLER introduced to surroundings, call light, bed controls, phone, TV, temperature control, lights, meal times, smoking policy, visitor policy, side rail policy, bathrooms and showers. Patient Rights given to patient in the handbook. BENITEZ BUTLER verbalizes understanding that [facility] is not responsible for the loss or damage to any personal effects or valuables that are kept in the patients posession during their hospitalization.
[2019-06-08 21:24] VITALS: BP 163/91
[2019-06-08] MEDS ORDERED: ONDANSETRON 4 MG/2 ML (SDV) Z0FRAN IV PRN (22:00)
[2019-06-08] MEDS ORDERED: IBUPROFEN 800 MG (MOTRIN) TAB PO PRN (22:00)
[2019-06-08] MEDS: NS IV 1000 ML 1,000 ML IV SCH (22:23)
[2019-06-08 23:00] VITALS: BP 143/63
[2019-06-09 04:00] VITALS: BP 135/65
[2019-06-09 05:11] LABS: BASOPHILS % (AUTO) 1 % (0-10); EOSINOPHILS # (AUTO) 0.1 10^3/uL (0.0-0.3); EOSINOPHILS % (AUTO) 1 % (0-10); HEMATOCRIT 34 % (35-52); LYMPHOCYTES # (AUTO) 1.5 X 10^3 (1.0-4.0); LYMPHOCYTES % (AUTO) 40 % (12-44); MEAN CORPUSCULAR HEMOGLOBIN 30 PG (25-34); MEAN CORPUSCULAR HGB CONC 32 G/DL (32-36); MEAN CORPUSCULAR VOLUME 94 FL (80-99); MEAN PLATELET VOLUME 8.5 FL (7.4-10.4); MONOCYTES # (AUTO) 0.4 X 10^3 (0.0-1.0); MONOCYTES % (AUTO) 12 % (0-12); NEUTROPHILS # (AUTO) 1.7 X 10^3 (1.8-7.8); NEUTROPHILS % (AUTO) 46 % (42-75); PLATELET COUNT 301 10^3/uL (130-400); RED CELL DISTRIBUTION WIDTH 14.7 % (10.0-14.5); WHITE BLOOD COUNT 3.7 10^3/uL (4.3-11.0)
[2019-06-09 05:28] LABS: ALANINE AMINOTRANSFERASE 25 U/L (0-55); ALBUMIN 3.6 GM/DL (3.2-4.5); ALKALINE PHOSPHATASE 164 U/L (40-136); BILIRUBIN,TOTAL 0.4 MG/DL (0.1-1.0); BUN/CREATININE RATIO 14; CALCIUM 9.3 MG/DL (8.5-10.1); CARBON DIOXIDE 23 MMOL/L (21-32); CHLORIDE 108 MMOL/L (98-107); CREATININE SERUM 0.74 MG/DL (0.60-1.30); GFR ESTIMATED > 60; GLUCOSE 106 MG/DL (70-105); POTASSIUM 3.7 MMOL/L (3.6-5.0); SODIUM 142 MMOL/L (135-145); TOTAL PROTEIN 6.5 GM/DL (6.4-8.2)
[2019-06-09 05:53] LABS: FREE T4 (FREE THYROXINE) 1.07 NG/DL (0.70-1.48)
--- NOTE | 2019-06-09 06:40 | Progress Note ---
Standard Progress Note Progress Notes/Assess & Plan Date Seen by a Provider: Jun 09, 2019 Time Seen by a Provider: 06:39 Progress/Assessment & Plan no complaints re knee incision clean and dry. Neg Valencia's s/p TKA up ad reggie, WBAT will follow as outpt AISHA LEE MD Jun 09, 2019 06:40 POS
[2019-06-09 08:00] VITALS: BP 164/88
[2019-06-09] MEDS ORDERED: OXYC-471 PO (08:27)
[2019-06-09] MEDS: NS IV 1000 ML 1,000 ML IV SCH (08:48)
--- NOTE | 2019-06-09 08:57 | NUR ---
DR MADRIGAL NOTIFIED OF CONSULT. ORDER RECEIVED FOR EKG AT THIS TIME.
--- NOTE | 2019-06-09 09:46 | Consultation-Cardiology ---
HPI-Cardiology Cardiology Consultation: Date of Consultation 06/09/19 Time Seen by a Provider: 09:20 Date of Admission 06-08-19 Attending Physician Leola Cary MD Admitting Physician Anderson Rice MD Consulting Physician Komal Reno MD HPI: Chief Complaint: Tachycardia Ms. Butler is a 58 year old female admitted to [facility] ED. She reports she had right TKR by Dr. Nguyen 2 weeks ago. She states she had been to see Dr. Nguyen for f/u post surgery and after her appt while she was on her way home they called her and told her to see her PCP d/t elevated HR and BP. She went to see Dr. Rice, her PCP, she reports she had been feeling weak, shaky, SOB. His office did ortho v/s and told her to stop her Atenolol for 2 days and then return to be re-evaluated. She then went back to see her PCP, at that time her HR was 140 and she was hypertensive, SBP 180. She was then directed to the ED. She reports she received 3 bags of IVF in the ED at [facility] and then was transferred here. She reports for several years she has had episodes of uncontrolled tremors which last for several minutes where her whole body will shake. She states she has had progressive weakness and SOB with ambulating short distances. She reports episodes of localized right sided, sharp, stabbing chest pain which last for a few seconds. No r/t activity or emotional stress. Episodes are infrequent with no assoc symptoms. She states she had swelling in her right leg since surgery. Venous duplex was done in the ED which did not show DVT. She states she had a CT of the chest in the ED which showed a mass in her left breast. She denies any c/o syncope, near syncope. She is currently not reporting any chest pain. She reports she feels "shaky". Review of Systems-Cardiology Review of Systems Constitutional: No chills, No fever; malaise Eyes: No vision change Ears/Nose/Throat: No epistaxis Respiratory: As described under HPI Cardiovascular: As described under HPI Gastrointestinal: No constipation, No diarrhea, No nausea, No vomiting Genitourinary: No dysuria, No hematuria Musculoskeletal: joint pain Skin: other (S/P R TKR); No rash on exposed areas, No ulcerations on exposed areas Psychiatric/Neurological: As described under HPI Hematologic: No bleeding abnormalities All Other Systems Reviewed Negative Unless Noted: Yes URI-Brrmrc-Djdtra Hx Patient Social History Alcohol Use: Denies Use Recreational Drug Use: No Smoking Status: Former Smoker 2nd Hand Smoke Exposure: No Recent Foreign Travel: No Recent Infectious Disease Expo: No Past Medical History PMH As described under Assessment. Family Medical History Family Medical History: She reports she has a half brother who had a heart attack and heart transplant, before age 60. Family History: Alcoholism Cardiovascular disease Diabetes mellitus Hypertension Myocardial infarction Allergies and Home Medications Allergies Coded Allergies: codeine (Verified Allergy, Mild, RASH, 05/11/19) Home Medications Aspirin 81 Mg Tablet.dr, 81 MG PO DAILY, (Reported) Docusate Sodium 100 Mg Capsule, 100 MG PO BID PRN for CONSTIPATION-1ST LINE, (Reported) Loperamide HCl 2 Mg Tablet, 2 MG PO UD PRN for DIARRHEA, (Reported) Meloxicam 15 Mg Tablet, 15 MG PO DAILY PRN for BACK/KNEE PAIN, (Reported) Metoprolol Succinate 100 Mg Tab.er.24h, 100 MG PO DAILY Prescribed by: CHEPE DIETZ on 06/10/19 1132 Patient Home Medication List Home Medication List Reviewed: Yes Physical Exam-Cardiology Physical Exam Vital Signs/I&O Capillary Refill : Less Than 3 Seconds Constitutional: AAO x 3, well-developed, well-nourished HEENT: PERRL, hearing is well preserved, oral hygience is good Neck: No carotid bruit; carotid pulses are 2 + bilaterally Respiratory: No accessory muscle use, No respiratory distress; chest expansion is symmetric, chest is bilaterally symmetric, lungs clear to auscultation Cardiovascular: No JVD; tachycardia (regular), S1 and S2 Gastrointestinal: No tender; soft, round, audible bowel sounds Extremities: other (Right leg, knee to ankle with swelling; right knee incision site with edges approx, no redness or drainage) Neurologic/Psychiatric: grossly intact Skin: No rash on exposed areas, No ulcerations on exposed areas Data Review Labs Radiology NAME: BENITEZ BUTLER [facility] REC#: [id number] PT STATUS: REG ER : 1960 PHYSICIAN: SADAF PRAKASH DO ADMIT DATE: 06/08/19/ER FS Signed Date of Exam:06/08/19 US VENOUS LOWER EXT RT PROCEDURE: US right lower extremity venous. TECHNIQUE: Multiple real-time grayscale images were obtained over the right lower extremity in various projections. Additional spectral analysis and color Doppler duplex images were also obtained. INDICATION: Recent surgery with right leg swelling EXAMINATION: Grayscale and color Doppler evaluation of the deep veins of the right lower extremity were performed with waveform analysis. FINDINGS: Continuous venous flow is present. No intraluminal filling defect is identified. There is normal compressibility and response to augmentation. No abnormal perivascular fluid collection is identified. IMPRESSION: No ultrasound evidence of right lower extremity deep venous thrombosis. Dictated by: Dictated on workstation # [id number] Dict: 06/08/19 1634 Trans: 06/08/19 1635 [id number] Interpreted by: RENATA GOODEN MD Electronically signed by: RENATA GOODEN MD 06/08/195 NAME: BENITEZ BUTLER [facility] REC#: [id number] PT STATUS: ADM Hannah : 1960 PHYSICIAN: SADAF PRAKASH DO ADMIT DATE: 06/08/19 Signed Date of Exam:06/08/19 CT ANGIO CHEST W PROCEDURE: CT angiography of the chest with contrast. TECHNIQUE: Multiple contiguous axial images were obtained through the chest after uneventful bolus administration of intravenous contrast. 3D reconstructed CTA MIP acquisitions were also performed. Auto Exposure Controls were utilized during the CT exam to meet ALARA standards for radiation dose reduction. INDICATION: Dyspnea. Tachycardia. COMPARISON: Chest radiograph 05/11/2019. FINDINGS: No pulmonary emboli. No thoracic aortic aneurysm or dissection. Mild linear scarring or atelectasis in the right lung base. Mild emphysematous changes. Lungs are otherwise clear. No pleural effusion or pneumothorax. No endobronchial lesions. Normal heart size. No pericardial effusion. No mediastinal, hilar or axillary lymphadenopathy. Small esophageal hiatal hernia. Spiculated soft tissue mass in the right breast measures up to 2.0 cm. No acute osseous findings. IMPRESSION: 1. No pulmonary emboli. No thoracic aortic aneurysm or dissection. 2. Mild atelectasis or scarring in the lung bases. 3. Mild centrilobular emphysema. 4. Indeterminate spiculated soft tissue nodule in the right breast measuring up to 2.0 cm. If this is an unknown clinical entity, recommend further evaluation with nonemergent diagnostic mammography. Dictated by: Dictated on workstation # [id number] Dict: 06/08/192 Trans: 06/08/192225 WADE [id number] Interpreted by: DAMARIS HANDLEY MD Electronically signed by: DAMARIS HANDLEY MD 06/08/192225 ECG Impression ECG Initial ECG Rhythm: S.Tach A/P-Cardiology Assessment/Admission Diagnosis Sinus tachycardia Non-specific right sided chest pain of undetermined etiology Progressive dyspnea of undetermined etiology HTN CTA of chest on 06-08-19: Mild atelectasis or scarring in the lung bases. Mild centrilobular emphysema. 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 Nguyen 2 weeks ago No evidence of R DVT per u/s on 06-08-19 Leukopenia of undetermined etiology - medical services managing TSH WNL on lab of 06-09-19 Discussion and Recomendations Sinus tachycardia - start BB for HR and BP control Echocardiogram to eval structure Left breast mass seen on CTA - medical services to manage TSH WNL Monitor lab Continue tele Further recs will be based on her hospital course We would like to thank medical services for this consult Clinical Quality Measures DVT/VTE Risk/Contraindication: Risk Factor Score Per Nursin RFS Level Per Nursing on Admit: 4+=Very High KWAN ENGLISH Jun 09, 2019 09:46 POS
[2019-06-09] MEDS ORDERED: meTOproloL SUCCINATE 50 MG (TOPROL XL) TAB PO SCH (10:00)
[2019-06-09] MEDS ORDERED: meTOprolol SUCCINATE 100 MG (TOPROL XL) TAB PO NR (10:30)
[2019-06-09] MEDS ORDERED: ASPI-983 PO (10:38)
[2019-06-09] MEDS ORDERED: LOPE-134 PO (10:38)
[2019-06-09] MEDS ORDERED: DOCU-143 PO (10:38)
--- NOTE | 2019-06-09 10:42 | NUR ---
"RD ASSESSMENT PMHx: s/p total knee replacement (2weeks); GERD; chronic constipation/diarrhea; PT INTERACTION: Pt was awake and pleasant during nutrition assessment. Pt states current appetite is okay, but had been poor recently d/t surgery. Note pt is 2weeks s/p total knee replacement, per chart review. Note no meals have been recorded at this time, per chart review. Pt states following a regular diet at home, and has no issues with chewing/swallowing food. Pt states no recent issues with n/v at this time. Pt states some recent issues with constipation and diarrhea, and that her last BM was 06/09. Note pt not currently on bowel regimen, per chart review. Pt states recent 5# wt loss since her surgery. Note unable to determine recent wt hx, per chart review. ABNORMAL NUTRITION-RELATED LAB VALUES LOW: HIGH: Cl 109; glu 106; alkphos 169 Est. kcal needs: [id number] kcal | 20-25 kcal/kg Est. Pro needs: 87-104 g Pro | 1.0-1.2 g Pro/kg PES STATEMENT: Inadequate oral intake (NI-2.1) related to loss of appetite as evidenced by pt interview INTERVENTION: Continue with current diet order of CHO 60g/m 3snack diet. Pt may benefit from nutrition supplementation if PO intake declines. Will continue to follow and reassess as pt needs and status change. MONITOR/EVALUATE: PO Intake; Plan of Care; Hydration Status; Weight Status; Lab Values Evelin Kirk, MS, RD, LD"
--- NOTE | 2019-06-09 10:43 | NUR ---
SPOKE WITH THE PATIENT ABOUT HER MEDICATIONS. SHE STATES SHE NO LONGER IS TAKING THE PERCOCET SHE FILLED OR THE DULOXETINE. SHE STOPPED THE PERCOCET BECAUSE HER PAIN WAS TOLERABLE AND SHE DOES NOT WANT TO GET ADDICTED TO THEM. SHE STATES THE DULOXETINE HAD NEGATIVE SIDE EFFECTS AND SHE WILL NOT TAKE IT. HER ATENOLOL WAS HELD 2 DAYS AGO BY HER PCP BUT SHE STATES JUST UNTIL THEY COULD DO SOME MORE FOLLOW UP TESTING. I LEFT IT ON THE MED REC AT THIS TIME BUT SOUNDS LIKE THE PLAN IS TO CHANGE IT TO METOPROLOL.
[2019-06-09 12:00] VITALS: BP 172/90
--- NOTE | 2019-06-09 15:06 | Consultation-Cardiology ---
HPI-Cardiology Cardiology Consultation: Date of Consultation 06/09/19 Time Seen by a Provider: 09:40 Date of Admission Attending Physician Leola Cary MD Admitting Physician Anderson Rice MD Consulting Physician EMERITA MADRIGAL MD, MA, FACP, FACC, FSCAI, CCDS HPI: Chief Complaint: Reason for consultation: Tachycardia HPI Ms. Carlson is a 58 year old female admitted to [facility] ED. She reports she had right TKR by Dr. Nguyen 2 weeks ago. She states she had been to see Dr. Nguyen for f/u post surgery and after her appt while she was on her way home they called her and told her to see her PCP d/t elevated HR and BP. She went to see Dr. Rice, her PCP, she reports she had been feeling weak, shaky, SOB. His office did ortho v/s and told her to stop her Atenolol for 2 days and then return to be re-evaluated. She then went back to see her PCP, at that time her HR was 140 and she was hypertensive, SBP 180. She was then directed to the ED. She reports she received 3 bags of IVF in the ED at [facility] and then was transferred here. She reports for several years she has had episodes of unco ntrolled tremors which last for several minutes where her whole body will shake. She states she has had progressive weakness and SOB with ambulating short distances. She reports episodes of localized right sided, sharp, stabbing chest pain which last for a few seconds. No r/t activity or emotional stress. Episodes are infrequent with no assoc symptoms. She states she had swelling in her right leg since surgery. Venous duplex was done in the ED which did not show DVT. She states she had a CT of the chest in the ED which showed a mass in her left breast. She denies any c/o syncope, near syncope. She is currently not reporting any chest pain. She reports she feels "shaky". Review of Systems-Cardiology Review of Systems Constitutional: No chills, No fever; malaise Eyes: No vision change Ears/Nose/Throat: No epistaxis Respiratory: As described under HPI Cardiovascular: As described under HPI Gastrointestinal: No constipation, No diarrhea, No nausea, No vomiting Genitourinary: No dysuria, No hematuria Musculoskeletal: joint pain Skin: other (S/P R TKR); No rash on exposed areas, No ulcerations on exposed areas Psychiatric/Neurological: As described under HPI Hematologic: No bleeding abnormalities All Other Systems Reviewed Negative Unless Noted: Yes MLQ-Jnakit-Kohfzc Hx Patient Social History Alcohol Use: Denies Use Recreational Drug Use: No Smoking Status: Former Smoker 2nd Hand Smoke Exposure: No Recent Foreign Travel: No Recent Infectious Disease Expo: No Past Medical History PMH As described under Assessment. Family Medical History Family Medical History: She reports she has a half brother who had a heart attack and heart transplant, before age 60. Family History: Alcoholism Cardiovascular disease Diabetes mellitus Hypertension Myocardial infarction Allergies and Home Medications Allergies Coded Allergies: codeine (Verified Allergy, Mild, RASH, 05/11/19) Home Medications Aspirin 81 Mg Tablet.dr, 81 MG PO DAILY, (Reported) Atenolol 50 Mg Tablet, 50 MG PO DAILY, (Reported) Docusate Sodium 100 Mg Capsule, 100 MG PO BID PRN for CONSTIPATION-1ST LINE, (Reported) Loperamide HCl 2 Mg Tablet, 2 MG PO UD PRN for DIARRHEA, (Reported) Meloxicam 15 Mg Tablet, 15 MG PO DAILY PRN for BACK/KNEE PAIN, (Reported) Patient Home Medication List Home Medication List Reviewed: Yes Physical Exam-Cardiology Physical Exam Vital Signs/I&O 06/09/19 06/09/19 06/09/19 06/09/19 04:00 08:00 09:47 10:01 Temp 36.9 37.3 Pulse 94 107 106 Resp 16 20 B/P (MAP) 135/65 (88) 164/88 (113) Pulse Ox 97 95 95 O2 Delivery Room Air Room Air Room Air 06/09/19 06/09/19 12:00 12:49 Temp 36.9 Pulse 99 100 Resp 20 B/P (MAP) 172/90 (117) Pulse Ox 97 O2 Delivery Room Air 06/09/19 00:00 Intake Total 2000 ml Balance 2000 ml Capillary Refill : Less Than 3 Seconds Constitutional: AAO x 3, well-developed, well-nourished HEENT: PERRL, hearing is well preserved, oral hygience is good Neck: No carotid bruit; carotid pulses are 2 + bilaterally Respiratory: No accessory muscle use, No respiratory distress; chest expansion is symmetric, chest is bilaterally symmetric, lungs clear to auscultation Cardiovascular: No JVD; tachycardia (regular), S1 and S2 Gastrointestinal: No tender; soft, round, audible bowel sounds Extremities: other (Right leg, knee to ankle with swelling; right knee incision site with edges approx, no redness or drainage) Neurologic/Psychiatric: grossly intact Skin: No rash on exposed areas, No ulcerations on exposed areas Data Review Labs Laboratory Tests 06/08/19 15:21: White Blood Count 5.6, Red Blood Count 4.33L, Hemoglobin 13.3, Hematocrit 40, Mean Corpuscular Volume 93, Mean Corpuscular Hemoglobin 31, Mean Corpuscular Hemoglobin Concent 33, Red Cell Distribution Width 13.8, Platelet Count 371, Mean Platelet Volume 8.3, Neutrophils (%) (Auto) 61, Lymphocytes (%) (Auto) 28, Monocytes (%) (Auto) 9, Eosinophils (%) (Auto) 1, Basophils (%) (Auto) 1, Neutrophils # (Auto) 3.4, Lymphocytes # (Auto) 1.6, Monocytes # (Auto) 0.5, Eosinophils # (Auto) 0.1, Basophils # (Auto) 0.1, D-Dimer 4.93H, Sodium Level 137, Potassium Level 3.8, Chloride Level 99, Carbon Dioxide Level 24, Anion Gap 14, Blood Urea Nitrogen 17, Creatinine 0.75, Estimat Glomerular Filtration Rate > 60, BUN/Creatinine Ratio 23, Glucose Level 136H, Calcium Level 9.9, Corrected Calcium 9.7, Total Bilirubin 0.4, Aspartate Amino Transf (AST/SGOT) 25, Alanine Aminotransferase (ALT/SGPT) 33, Alkaline Phosphatase 213H, Troponin I < 0.30, Pro-B-Type Natriuretic Peptide 43.3, Total Protein 7.9, Albumin 4.3 06/08/19 16:59: Urine Color YELLOW, Urine Clarity CLEAR, Urine pH 5.0, Urine Specific [place] 1.010L, Urine Protein NEGATIVE, Urine Glucose (UA) NEGATIVE, Urine Ketones NEGATIVE, Urine Nitrite NEGATIVE, Urine Bilirubin NEGATIVE, Urine Urobilinogen 0.2, Urine Leukocyte Esterase NEGATIVE, Urine RBC (Auto) NEGATIVE, Urine RBC NONE, Urine WBC RARE, Urine Squamous Epithelial Cells 0-2, Urine Renal Epithelial Cells 0-2, Urine Crystals NONE, Urine Bacteria NEGATIVE, Urine Casts NONE, Urine Mucus NEGATIVE, Urine Culture Indicated NO 06/09/19 04:15: White Blood Count 3.7L, Red Blood Count 3.65L, Hemoglobin 11.0L, Hematocrit 34L, Mean Corpuscular Volume 94, Mean Corpuscular Hemoglobin 30, Mean Corpuscular Hemoglobin Concent 32, Red Cell Distribution Width 14.7H, Platelet Count 301, Mean Platelet Volume 8.5, Neutrophils (%) (Auto) 46, Lymphocytes (%) (Auto) 40, Monocytes (%) (Auto) 12, Eosinophils (%) (Auto) 1, Basophils (%) (Auto) 1, Neutrophils # (Auto) 1.7L, Lymphocytes # (Auto) 1.5, Monocytes # (Auto) 0.4, Eosinophils # (Auto) 0.1, Basophils # (Auto) 0.0, Sodium Level 142, Potassium Level 3.7, Chloride Level 108H, Carbon Dioxide Level 23, Anion Gap 11, Blood Urea Nitrogen 10, Creatinine 0.74, Estimat Glomerular Filtration Rate > 60, BUN/Creatinine Ratio 14, Glucose Level 106H, Calcium Level 9.3, Corrected Calcium 9.6, Total Bilirubin 0.4, Aspartate Amino Transf (AST/SGOT) 20, Alanine Aminotransferase (ALT/SGPT) 25, Alkaline Phosphatase 164H, Total Protein 6.5, Albumin 3.6, Thyroid Stimulating Hormone (TSH) 2.71, Free Thyroxine 1.07 Laboratory Tests 06/08/19 15:21 06/09/19 04:15 A/P-Cardiology Assessment/Admission Diagnosis Sinus tachycardia, probably related to vol depletion Non-specific right sided chest pain of undetermined etiology Progressive dyspnea of undetermined etiology Echo of 06/09/19: LVEF 70-75%, hyperdynamic LV, grade 1 weiss dysfunction, RVSP 25 mmHg HTN CTA of chest on 06-08-19: Mild atelectasis or scarring in the lung bases. Mild centrilobular emphysema. 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 Nguyen 2 weeks ago No evidence of R DVT per u/s on 06-08-19 Leukopenia of undetermined etiology - Medical Services managing L breast mass seen on CTA of - Med Services managing TSH WNL on lab of 06-09-19 Discussion and Recomendations * BB for HR and BP control * iv fluids * Left breast mass seen on CTA - Medical Services to manage * Monitor lab * Continue tele * Further recs will be based on her hospital course * We would like to thank Medical Services for this consult Clinical Quality Measures DVT/VTE Risk/Contraindication: Risk Factor Score Per Nursin RFS Level Per Nursing on Admit: 4+=Very High EMERITA MADRIGAL MD FACP FAC CCDS Jun 09, 2019 15:06 POS
[2019-06-09 16:00] VITALS: BP 154/81
[2019-06-09] MEDS ORDERED: DOCUSATE SODIUM 100 MG (COLACE) CAP PO PRN (16:00)
--- NOTE | 2019-06-09 16:00 | History & Physical ---
HPI History of Present Illness: 58 yo F that recently have total knee replacement 2 weeks ago that presented with weakness, tachycardia and shortness of breath. States that she has had problems with tachycardia in the past and is on atenolol but it was not helping. Denies any fever or chills. Has been doing rehab and doing well. Tolerating PO diet. Denies any pain other then in her leg. ER evaluation included neg dopplers and CTA for PE given recent h/o surgery. Cardiology was consulted. Source: patient, spouse Exam Limitations: no limitations Date seen by provider: Jun 09, 2019 Time Seen by Provider: 10:30 Attending Physician Leola Cary MD PCP Dom Nix MD Consult Date of Admission Jun 08, 2019 at 19:43 Home Medications Home Medications Reviewed patient Home Medication Reconciliation performed by pharmacy medication reconciliations agricultural engineering technician and/or nursing. Patients Allergies have been reviewed. Allergies Coded Allergies: codeine (Verified Allergy, Mild, RASH, 05/11/19) [id number] Hx Patient Social History Living Status: Lives with spouse Alcohol Use: Denies Use Recreational Drug Use: No Smoking Status: Former Smoker 2nd Hand Smoke Exposure: No Recent Foreign Travel: No Contact w/other who traveled: No Recent Hopitalizations: No Recent Infectious Disease Expo: No Past Medical History Osteoarthritis R knee s/p Total Knee replacement 04/2019 HTN Family Medical History Family History: Alcoholism Cardiovascular disease Diabetes mellitus Hypertension Myocardial infarction Review of Systems ([facility]) Constitutional: No chills, No fever; malaise, weakness EENTM: no symptoms reported; No mouth pain, No nose congestion, No throat pain Respiratory: No cough; dyspnea on exertion, short of breath Cardiovascular: no symptoms reported; No chest pain, No edema, No palpitations Gastrointestinal: no symptoms reported; No abdominal pain, No constipation, No diarrhea, No nausea, No vomiting Genitourinary: no symptoms reported; No dysuria, No frequency, No hematuria : No Musculoskeletal: joint pain Skin: no symptoms reported; No lesions, No rash Psychiatric/Neurological: No Symptoms Reported Reviewed Test Results Reviewed Test Results Lab Laboratory Tests Test 06/08/19 16:59 06/09/19 04:15 Range/Units Urine Color YELLOW Urine Clarity CLEAR Urine pH 5.0 5-9 Urine Specific [place] 1.010 L 1.016-1.022 Urine Protein NEGATIVE NEGATIVE Urine Glucose (UA) NEGATIVE NEGATIVE Urine Ketones NEGATIVE NEGATIVE Urine Nitrite NEGATIVE NEGATIVE Urine Bilirubin NEGATIVE NEGATIVE Urine Urobilinogen 0.2 < = 1.0 MG/DL Urine Leukocyte Esterase NEGATIVE NEGATIVE Urine RBC (Auto) NEGATIVE NEGATIVE Urine RBC NONE /HPF Urine WBC RARE /HPF Urine Squamous Epithelial Cells 0-2 /HPF Urine Renal Epithelial Cells 0-2 /HPF Urine Crystals NONE /LPF Urine Bacteria NEGATIVE /HPF Urine Casts NONE /LPF Urine Mucus NEGATIVE /LPF Urine Culture Indicated NO White Blood Count 3.7 L 4.3-11.0 10^3/uL Red Blood Count 3.65 L 4.35-5.85 10^6/uL Hemoglobin 11.0 L 11.5-16.0 G/DL Hematocrit 34 L 35-52 % Mean Corpuscular Volume 94 80-99 FL Mean Corpuscular Hemoglobin 30 25-34 PG Mean Corpuscular Hemoglobin Concent 32 32-36 G/DL Red Cell Distribution Width 14.7 H 10.0-14.5 % Platelet Count 301 130-400 10^3/uL Mean Platelet Volume 8.5 7.4-10.4 FL Neutrophils (%) (Auto) 46 42-75 % Lymphocytes (%) (Auto) 40 12-44 % Monocytes (%) (Auto) 12 0-12 % Eosinophils (%) (Auto) 1 0-10 % Basophils (%) (Auto) 1 0-10 % Neutrophils # (Auto) 1.7 L 1.8-7.8 X 10^3 Lymphocytes # (Auto) 1.5 1.0-4.0 X 10^3 Monocytes # (Auto) 0.4 0.0-1.0 X 10^3 Eosinophils # (Auto) 0.1 0.0-0.3 10^3/uL Basophils # (Auto) 0.0 0.0-0.1 10^3/uL Sodium Level 142 135-145 MMOL/L Potassium Level 3.7 3.6-5.0 MMOL/L Chloride Level 108 H 98-107 MMOL/L Carbon Dioxide Level 23 21-32 MMOL/L Anion Gap 11 5-14 MMOL/L Blood Urea Nitrogen 10 7-18 MG/DL Creatinine 0.74 0.60-1.30 MG/DL Estimat Glomerular Filtration Rate > 60 BUN/Creatinine Ratio 14 Glucose Level 106 H 70-105 MG/DL Calcium Level 9.3 8.5-10.1 MG/DL Corrected Calcium 9.6 8.5-10.1 MG/DL Total Bilirubin 0.4 0.1-1.0 MG/DL Aspartate Amino Transf (AST/SGOT) 20 5-34 U/L Alanine Aminotransferase (ALT/SGPT) 25 0-55 U/L Alkaline Phosphatase 164 H 40-136 U/L Total Protein 6.5 6.4-8.2 GM/DL Albumin 3.6 3.2-4.5 GM/DL Thyroid Stimulating Hormone (TSH) 2.71 0.35-4.94 UIU/ML Free Thyroxine 1.07 0.70-1.48 NG/DL Radiology NAME: BENITEZ BUTLER [facility] REC#: [id number] PT STATUS: REG ER : 1960 PHYSICIAN: SADAF PRAKASH DO ADMIT DATE: 06/08/19/ER FS Signed Date of Exam:06/08/19 US VENOUS LOWER EXT RT PROCEDURE: US right lower extremity venous. TECHNIQUE: Multiple real-time grayscale images were obtained over the right lower extremity in various projections. Additional spectral analysis and color Doppler duplex images were also obtained. INDICATION: Recent surgery with right leg swelling EXAMINATION: Grayscale and color Doppler evaluation of the deep veins of the right lower extremity were performed with waveform analysis. FINDINGS: Continuous venous flow is present. No intraluminal filling defect is identified. There is normal compressibility and response to augmentation. No abnormal perivascular fluid collection is identified. IMPRESSION: No ultrasound evidence of right lower extremity deep venous thrombosis. Dictated by: Dictated on workstation # [id number] Dict: 06/08/19 1634 Trans: 06/08/19 1635 [id number] Interpreted by: RENATA GOODEN MD Electronically signed by: RENATA GOODEN MD 06/08/19 1635 NAME: BENITEZ BUTLER [facility] REC#: [id number] PT STATUS: ADM Hannah : 1960 PHYSICIAN: SADAF PRAKASH DO ADMIT DATE: 06/08/19/4TH Signed Date of Exam:06/08/19 CT ANGIO CHEST W PROCEDURE: CT angiography of the chest with contrast. TECHNIQUE: Multiple contiguous axial images were obtained through the chest after uneventful bolus administration of intravenous contrast. 3D reconstructed CTA MIP acquisitions were also performed. Auto Exposure Controls were utilized during the CT exam to meet ALARA standards for radiation dose reduction. INDICATION: Dyspnea. Tachycardia. COMPARISON: Chest radiograph 05/11/2019. FINDINGS: No pulmonary emboli. No thoracic aortic aneurysm or dissection. Mild linear scarring or atelectasis in the right lung base. Mild emphysematous changes. Lungs are otherwise clear. No pleural effusion or pneumothorax. No endobronchial lesions. Normal heart size. No pericardial effusion. No mediastinal, hilar or axillary lymphadenopathy. Small esophageal hiatal hernia. Spiculated soft tissue mass in the right breast measures up to 2.0 cm. No acute osseous findings. IMPRESSION: 1. No pulmonary emboli. No thoracic aortic aneurysm or dissection. 2. Mild atelectasis or scarring in the lung bases. 3. Mild centrilobular emphysema. 4. Indeterminate spiculated soft tissue nodule in the right breast measuring up to 2.0 cm. If this is an unknown clinical entity, recommend further evaluation with nonemergent diagnostic mammography. Dictated by: Dictated on workstation # [id number] Dict: 06/08/19 1722 Trans: 06/08/192225 [facility] [id number] Interpreted by: DAMARIS HANDLEY MD Electronically signed by: DAMARIS HANDLEY MD 06/08/192225 Physical Exam-([facility]) Physical Exam Vital Signs VS - Last 72 Hours, by Label POS 06/08/19 06/08/19 06/08/19 06/08/19 15:06 15:25 17:45 20:21 Temp 36.8 Pulse 112 100 114 145 123 127 145 138 Resp 16 19 B/P (MAP) 162/94 (116) 165/83 (110) 165/70 (101) 181/117 152/84 (106) 180/96 (124) 150/108 (122) 195/101 (132) Pulse Ox 98 98 O2 Delivery Room Air Room Air 06/08/19 06/08/19 06/08/19 06/09/19 21:24 22:00 23:00 04:00 Temp 37.4 36.8 36.9 Pulse 111 94 94 Resp 20 20 16 B/P (MAP) 163/91 143/63 (89) 135/65 (88) Pulse Ox 98 97 97 O2 Delivery Room Air Room Air Room Air Room Air 06/09/19 06/09/19 06/09/19 06/09/19 08:00 09:47 10:01 12:00 Temp 37.3 36.9 Pulse 107 106 99 Resp 20 20 B/P (MAP) 164/88 (113) 172/90 (117) Pulse Ox 95 95 97 O2 Delivery Room Air Room Air Room Air 06/09/19 12:49 Pulse 100 Capillary Refill : Less Than 3 Seconds General Appearance: WD/WN, no apparent distress HEENT: PERRL/EOMI Neck: non-tender, full range of motion, supple, normal inspection Respiratory: chest non-tender, lungs clear, normal breath sounds, no respiratory distress, no accessory muscle use Cardiovascular: normal peripheral pulses, no edema, no murmur, tachycardia Gastrointestinal: normal bowel sounds, non tender, soft, no organomegaly Back: no CVA tenderness, no vertebral tenderness Extremities: normal range of motion, non-tender, no calf tenderness, normal capillary refill, other (mild swelling of right leg) 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, no motor/sensory deficits, alert, normal mood/affect, oriented x 3 Skin: normal color, warm/dry, other (Incision C/D/I) Lymphatic: no adenopathy Assessment/Plan Assessment/Plan Admission Status: Observation (1) Tachycardia Status: Chronic Assessment & Plan: - Patient evaluated by cardiology, appreciate recommend ations, Started on metoprolol, continue to monitor, if improved plan to d/c home in AM (2) Dyspnea Status: Acute Assessment & Plan: - Neg dopplers and CTA for PE Qualifiers: Qualified Codes: R06.09 - Other forms of dyspnea (3) Breast mass, right Status: Acute Assessment & Plan: - Needs outpatient Diagnostic mammogram (4) Hypertension Status: Chronic Qualifiers: Qualified Codes: I10 - Essential (primary) hypertension (5) DVT prophylaxis Status: Acute Assessment & Plan: - Lovenox Clinical Quality Measures DVT/VTE Risk/Contraindication: Risk Factor Score Per Nursin RFS Level Per Nursing on Admit: 4+=Very High Copy Copies To 1: DOM NIX MD, HOLLY R MD Jun 09, 2019 16:00 POS
[2019-06-09] MEDS ORDERED: ENOXAPARIN 40 MG/0.4 ML (LOVENOX) SYR SC SCH (17:00)
[2019-06-09 20:00] VITALS: BP 169/83
[2019-06-09 23:25] VITALS: BP 165/87
[2019-06-10 04:47] VITALS: BP 140/82
[2019-06-10 04:47] LABS: BASOPHILS % (AUTO) 1 % (0-10); EOSINOPHILS # (AUTO) 0.1 10^3/uL (0.0-0.3); EOSINOPHILS % (AUTO) 2 % (0-10); HEMATOCRIT 35 % (35-52); HEMOGLOBIN 11.2 G/DL (11.5-16.0); LYMPHOCYTES # (AUTO) 1.5 X 10^3 (1.0-4.0); LYMPHOCYTES % (AUTO) 40 % (12-44); MEAN CORPUSCULAR HEMOGLOBIN 30 PG (25-34); MEAN CORPUSCULAR HGB CONC 32 G/DL (32-36); MEAN CORPUSCULAR VOLUME 95 FL (80-99); MEAN PLATELET VOLUME 8.9 FL (7.4-10.4); MONOCYTES # (AUTO) 0.5 X 10^3 (0.0-1.0); MONOCYTES % (AUTO) 14 % (0-12); NEUTROPHILS # (AUTO) 1.6 X 10^3 (1.8-7.8); NEUTROPHILS % (AUTO) 44 % (42-75); PLATELET COUNT 272 10^3/uL (130-400); RED CELL DISTRIBUTION WIDTH 14.4 % (10.0-14.5); WHITE BLOOD COUNT 3.6 10^3/uL (4.3-11.0)
[2019-06-10 05:07] LABS: BUN/CREATININE RATIO 19; CALCIUM 9.3 MG/DL (8.5-10.1); CARBON DIOXIDE 20 MMOL/L (21-32); CHLORIDE 108 MMOL/L (98-107); CREATININE SERUM 0.73 MG/DL (0.60-1.30); GFR ESTIMATED > 60; GLUCOSE 139 MG/DL (70-105); POTASSIUM 4.1 MMOL/L (3.6-5.0); SODIUM 141 MMOL/L (135-145)
[2019-06-10 07:35] VITALS: BP 161/77
[2019-06-10] MEDS ORDERED: meTOprolol SUCCINATE 100 MG (TOPROL XL) TAB PO SCH (09:00)
[2019-06-10] MEDS ORDERED: meTOproloL SUCCINATE 50 MG (TOPROL XL) TAB PO SCH (09:00)
[2019-06-10] MEDS ORDERED: ASPIRIN E.C. 81 MG (ECOTRIN) TAB PO SCH (09:00)
--- NOTE | 2019-06-10 11:17 | Progress Note - Cardiology ---
Cardiology SOAP Progress Note Subjective: No cp or palp or syncope or shortness of breath at rest. Does have chronic exertional shortness of breath, unchanged in the recent past Gen weakness and malaise No N/V. Good appetite Objective: I&O/Vital Signs 06/09/19 06/10/19 06/10/19 06/10/19 23:25 01:00 04:47 07:00 Temp 36.9 36.3 Pulse 82 76 87 85 Resp 20 18 B/P (MAP) 165/87 (113) 140/82 (101) Pulse Ox 94 97 O2 Delivery Room Air Room Air 06/10/19 06/10/19 07:35 08:00 Temp 36.3 Pulse 76 Resp 18 B/P (MAP) 161/77 (105) Pulse Ox 96 O2 Delivery Room Air Room Air 06/10/19 00:00 Intake Total 2640 ml Output Total 3250 ml Balance -610 ml Constitutional: AAO x 3, well-developed, well-nourished Respiratory: No accessory muscle use, No respiratory distress; chest expansion is symmetric, chest is bilaterally symmetric, lungs clear to auscultation Cardiovascular: No JVD; tachycardia (regular), S1 and S2 Gastrointestional: No tender; soft, round, audible bowel sounds Extremities: other (Right leg, knee to ankle with swelling; right knee incision site with edges approx, no redness or drainage) Neurologic/Psychiatric: grossly intact Skin: No rash on exposed areas, No ulcerations on exposed areas Results/Procedures: Labs Laboratory Tests 06/10/19 04:06: White Blood Count 3.6L, Red Blood Count 3.73L, Hemoglobin 11.2L, Hematocrit 35, Mean Corpuscular Volume 95, Mean Corpuscular Hemoglobin 30, Mean Corpuscular Hemoglobin Concent 32, Red Cell Distribution Width 14.4, Platelet Count 272, Mean Platelet Volume 8.9, Neutrophils (%) (Auto) 44, Lymphocytes (%) (Auto) 40, Monocytes (%) (Auto) 14H, Eosinophils (%) (Auto) 2, Basophils (%) (Auto) 1, Neutrophils # (Auto) 1.6L, Lymphocytes # (Auto) 1.5, Monocytes # (Auto) 0.5, Eosinophils # (Auto) 0.1, Basophils # (Auto) 0.0, Sodium Level 141, Potassium Level 4.1, Chloride Level 108H, Carbon Dioxide Level 20L, Anion Gap 13, Blood Urea Nitrogen 14, Creatinine 0.73, Estimat Glomerular Filtration Rate > 60, BUN/Creatinine Ratio 19, Glucose Level 139H, Calcium Level 9.3 Laboratory Tests 06/08/19 15:21 06/09/19 04:15 06/10/19 04:06 A/P: Assessment: Sinus tachycardia, probably related to vol depletion Non-specific right sided chest pain of undetermined etiology, resolved, no evidence of ACS Chronic exertional shortness of breath, not significantly changed in the recent past Echo of 06/09/19: LVEF 70-75%, hyperdynamic LV, grade 1 weiss dysfunction, RVSP 25 mmHg HTN CTA of chest on 06-08-19: Mild atelectasis or scarring in the lung bases. Mild centrilobular emphysema. 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 Nguyen 2 weeks ago No evidence of R DVT per u/s on 06-08-19 Leukopenia of undetermined etiology - Medical Services managing L breast mass seen on CTA of - Med Services managing TSH WNL on lab of 06-09-19 Plan: * Heart rate much improved after volume repletion * Continue BB for HR and BP control * I discussed her CV issues and CV w/u at this hosp with her, her , and with Dr Ervin * Left breast mass seen on CTA - Medical Services to manage. I spoke with Dr Ervin about it today and he told me that pt has been informed and she is to undertake w/u as outpt * Outpt cardiac f/u advised EMERITA MADRIGAL MD FACP [facility] CCDS Jun 10, 2019 11:17 POS
[2019-06-10] MEDS ORDERED: METO-395 PO (11:32)
[2019-06-10 11:35] VITALS: BP 171/73
--- NOTE | 2019-06-10 11:42 | Discharge Summary ---
Discharge Summary Hospital Course Hospital Course Date of Admission: Jun 08, 2019 at 19:43 Admission Diagnosis : Family Physician/Provider: Dom Rice MD Date of Discharge: 06/10/19 Discharge Diagnosis: [ ] Hospital Course: [ Patient was admitted for further evaluation of sinus tachycardia. Combination of dehydration and beta emilia withdrawal with recent surgery/total knee replacement or felt to be most likely causes. While she was noted to have mild normocytic anemia after rehydration hemoglobin level of 11.6 is not favored to be contributing. She had CT angiography which revealed no pulmonary problems no evidence for pulmonary embolism but did reveal a suspicious 2 cm spiculated right breast mass. We discussed the importance of mammography possible sono graphy for the initial workup to evaluate for underlying breast cancer with her present. They assured me that they will be following up with her primary care physician to get the study set up. Cardiology was consult that in Dr. MADRIGAL resume beta emilia therapy in the form of metoprolol 100 mg daily. Heart rate came down from the 1 teen range to the 70 range with patient maintaining sinus rhythm with no arrhythmias being noted during her hospital stay on telemetry. Patient was advised to continue metoprolol 100 mg daily.] Labs and Pending Lab Test: Laboratory Tests 06/10/19 04:06: White Blood Count 3.6L, Red Blood Count 3.73L, Hemoglobin 11.2L, Hematocrit 35, Mean Corpuscular Volume 95, Mean Corpuscular Hemoglobin 30, Mean Corpuscular Hemoglobin Concent 32, Red Cell Distribution Width 14.4, Platelet Count 272, Mean Platelet Volume 8.9, Neutrophils (%) (Auto) 44, Lymphocytes (%) (Auto) 40, Monocytes (%) (Auto) 14H, Eosinophils (%) (Auto) 2, Basophils (%) (Auto) 1, Neutrophils # (Auto) 1.6L, Lymphocytes # (Auto) 1.5, Monocytes # (Auto) 0.5, Eosinophils # (Auto) 0.1, Basophils # (Auto) 0.0, Sodium Level 141, Potassium Level 4.1, Chloride Level 108H, Carbon Dioxide Level 20L, Anion Gap 13, Blood Urea Nitrogen 14, Creatinine 0.73, Estimat Glomerular Filtration Rate > 60, BUN/Creatinine Ratio 19, Glucose Level 139H, Calcium Level 9.3 Home Meds Active Metoprolol Succinate 100 Mg Tab.er.24h 100 Mg PO DAILY 30 Days Reported Imodium A-D (Loperamide HCl) 2 Mg Tablet 2 Mg PO UD PRN Colace (Docusate Sodium) 100 Mg Capsule 100 Mg PO BID PRN Aspirin EC (Aspirin) 81 Mg Tablet.dr 81 Mg PO DAILY Meloxicam 15 Mg Tablet 15 Mg PO DAILY PRN Assessment/Pt Instructions See hospital course and diagnosis list Discharge Planning: >30 minutes discharge planning Discharge Physical Examination Vital Signs Vital Signs Date Time Temp Pulse Resp B/P (MAP) Pulse Ox O2 Delivery O2 Flow Rate FiO2 06/10/19 08:00 Room Air 06/10/19 07:35 36.3 76 18 161/77 (105 96 General Appearance: No Apparent Distress Respiratory: Chest Non Tender, Lungs Clear, Normal Breath Sounds, No Accessory Muscle Use, No Respiratory Distress Cardiovascular: Regular Rate, Rhythm, No Edema, No Gallop, No JVD, No Murmur, Normal Peripheral Pulses Neurologic/Psychiatric: Alert, Oriented x3 Allergies: Coded Allergies: codeine (Verified Allergy, Mild, RASH, 05/11/19) Copy Copies To 1: DOM RICE MD Discharge Summary Date of Admission Jun 08, 2019 at 19:43 Date of Discharge Discharge Date: Jun 10, 2019 Discharge Diagnosis 1. Sinus tachycardia 2. Dehydration 3. Mild normocytic anemia 4. Right breast mass 5. Hypertension essential Clinical Quality Measures DVT/VTE Risk/Contraindication: Risk Factor Score Per Nursin RFS Level Per Nursing on Admit: 4+=Very High CHEPE DIETZ MD Jun 10, 2019 11:40 POS
[2019-06-10 12:23] VITALS: BP 171/73
== END 2019-06-10 12:26 | disposition home or self-care (01) ==
LOC: EDUNIT# 15:01 → ER FS 15:03 → 4TH 19:43
PROVIDERS: ADMIT Family Medicine; ATTEND Family Medicine
DX: R00.0 Tachycardia, unspecified (principal); R06.09 Other forms of dyspnea; I10 Essential (primary) hypertension; E86.0 Dehydration; N63.10 Unspecified lump in the right breast, unspecified quadrant; D64.9 Anemia, unspecified; J43.9 Emphysema, unspecified; D72.819 Decreased white blood cell count, unspecified; I07.1 Rheumatic tricuspid insufficiency; K21.9 Gastro-esophageal reflux disease without esophagitis; K59.09 Other constipation; K52.9 Noninfective gastroenteritis and colitis, unspecified; M19.90 Unspecified osteoarthritis, unspecified site; M54.9 Dorsalgia, unspecified; F41.9 Anxiety disorder, unspecified; Z79.82 Long term (current) use of aspirin; Z79.899 Other long term (current) drug therapy; Z88.5 Allergy status to narcotic agent; Z87.891 Personal history of nicotine dependence; Z82.49 Family history of ischemic heart disease and other diseases of the circulatory system; Z83.3 Family history of diabetes mellitus
CPT/HCPCS: 36415; 71275; 80048; 80053; 81000; 83880; 84439; 84443; 84484; 85025; 85379; 93005; 93306; 96360; 96361; G0378

== ENCOUNTER 2020-05-01 15:42 | Emergency (ER) | payer MEDICAID ==
[~2020-05-01] VITALS: Ht 169 cm; Wt 90.7 kg
[~2020-05-01 15:42] MED LIST changes: +ASPI-1238 PO; +DOCU-143 PO; +LOPE-134 PO; +MTP100TCR PO; +OXYC-471 PO
--- NOTE | 2020-05-01 16:11 | Diagnostic Imaging Report ---
INDICATION: Shortness of breath. EXAMINATION: Portable chest at 03:58 p.m. FINDINGS: There are patchy groundglass alveolar infiltrates in both lungs. There is no effusion. Heart size is normal. IMPRESSION: Patchy peripheral pulmonary infiltrates consistent with COVID pneumonia. Dictated by: Dictated on workstation # [id number]
--- NOTE | 2020-05-01 16:28 | ED Cough/URI ---
General Chief Complaint: Respiratory Problems Stated Complaint: COVID + Nursing Triage Note: Patient presents to the ED with c/o of shortness of breath, weakness, diarrhea, and fever. Patient is COVID 19 positive. She states that she hasn't ran a fever with her illness until Wednesday; 10 days after testing positive. She reports weakness increased weakness and fatigue. Sepsis Screen: Possible Severe Sepsis Risk Source: patient Exam Limitations: no limitations History of Present Illness Date Seen by Provider: May 01, 2020 Time Seen by Provider: 16:00 Initial Comments 59-year-old female diagnosed with positive COVID 19 on 20 April, presents with cough and chest tightness over the past several days and weakness. Intermittent fever the past few days Allergies and Home Medications Allergies Coded Allergies: codeine (Verified Allergy, Mild, RASH, 05/11/19) Home Medications Albuterol Sulfate 1 Puff Puff, 2 PUFF IH Q4H 1 PUFF = 90 MCG Prescribed by: ALEENA CHAVEZ on 05/01/20 1637 Aspirin 81 Mg Tablet.dr, 81 MG PO DAILY, (Reported) Azithromycin 500 Mg Tablet, 500 MG PO DAILY Prescribed by: ALEENA CHAVEZ on 05/01/20 1637 Dexamethasone 6 Mg Tablet, 6 MG PO DAILY Prescribed by: ALEENA CHAVEZ on 05/01/20 1637 Docusate Sodium 100 Mg Capsule, 100 MG PO BID PRN for CONSTIPATION-1ST LINE, (Reported) Hydroxychloroquine Sulfate 200 Mg Tablet, 200 MG PO BID Prescribed by: ALEENA CHAVEZ on 05/01/20 1637 Loperamide HCl 2 Mg Tablet, 2 MG PO UD PRN for DIARRHEA, (Reported) Meloxicam 15 Mg Tablet, 15 MG PO DAILY PRN for BACK/KNEE PAIN, (Reported) Metoprolol Succinate 100 Mg Tab.er.24h, 100 MG PO DAILY Prescribed by: CHEPE DIETZ on 06/10/19 1132 Patient Home Medication List Home Medication List Reviewed: Yes Review of Systems Review of Systems Constitutional: No chills, No dizziness; fever, malaise, weakness EENTM: no symptoms reported Respiratory: cough, short of breath Cardiovascular: No chest pain, No palpitations, No syncope Gastrointestinal: No abdominal pain; diarrhea, loss of appetite; No vomiting Musculoskeletal: No back pain, No joint pain Skin: No change in color, No rash Past Qfbqnui-Drafsp-Rubvbz Hx Past Med/Social Hx: Reviewed Nursing Past Med/Soc Hx Patient Social History Former Smoker, Quit: May 11, 1980 2nd Hand Smoke Exposure: No Recent Foreign Travel: No Contact w/Someone Who Travel: No Recent Infectious Disease Expo: Yes (COVID + April 23) Recent Hopitalizations: No Physical Abuse: No Sexual Abuse: No Mistreated: No Fear: No Seasonal Allergies Seasonal Allergies: No (MILD) Past Medical History Surgeries: Yes (BREAST BIOPSY, RTK) Respiratory: No Cardiac: Yes Hypertension Neurological: No Sexually Transmitted Disease: No HIV/AIDS: No Genitourinary: No Gastrointestinal: Yes Gastroesophageal Reflux, Chronic Constipation, Chronic Diarrhea Musculoskeletal: Yes (OSTEOARTHRITIS) Arthritis, Chronic Back Pain Endocrine: Yes (BOARDER LINE DIABETES) HEENT: Yes (GLASSES) Loss of Vision: Denies Hearing Impairment: Denies Cancer: Yes Breast Did You Recieve Any Treatments: Yes What Type of Treatment Did You: Surgical Intervention Psychosocial: Yes (HX ANXIETY) Integumentary: No Blood Disorders: No Adverse Reaction/Blood Tranf: No (N/A) Family Medical History Alcoholism Cardiovascular disease Diabetes mellitus Hypertension Myocardial infarction Physical Exam Vital Signs - First Documented 05/01/20 15:50 Temp 36.0 Pulse 91 Resp 19 B/P (MAP) 141/72 (95) Pulse Ox 94 O2 Delivery Room Air Capillary Refill : Less Than 3 Seconds Height: '" Weight: lbs. oz. kg; 31.00 BMI Method: General Appearance: WD/WN, no apparent distress HEENT: PERRL/EOMI, normal ENT inspection Neck: non-tender, supple Respiratory: chest non-tender, no respiratory distress, no accessory muscle use, decreased breath sounds; No rhonchi, No stridor, No wheezing Cardiovascular: regular rate, rhythm, no edema Gastrointestinal: non tender, soft Extremities: non-tender, no pedal edema Neurologic/Psychiatric: no motor/sensory deficits, alert, normal mood/affect Skin: normal color, warm/dry Progress/Results/Core Measures Suspected Sepsis Recent Fever Within 48 Hours: Yes Infection Criteria Present: Documented Infection New/Unexplained Altered Menta: No Sepsis Screen: Possible Severe Sepsis Risk SIRS Temperature: Pulse: 91 Respiratory Rate: 19 Laboratory Tests 05/01/20 16:23: White Blood Count 5.2 Blood Pressure 141 /72 Mean: 95 Laboratory Tests 05/01/20 16:23: Creatinine 0.78, Platelet Count 232, Total Bilirubin 0.4 Results/Orders Lab Results Laboratory Tests Test 05/01/20 16:23 Range/Units White Blood Count 5.2 4.3-11.0 10^3/uL Red Blood Count 3.96 L 4.35-5.85 10^6/uL Hemoglobin 11.9 11.5-16.0 G/DL Hematocrit 36 35-52 % Mean Corpuscular Volume 90 80-99 FL Mean Corpuscular Hemoglobin 30 25-34 PG Mean Corpuscular Hemoglobin Concent 33 32-36 G/DL Red Cell Distribution Width 13.4 10.0-14.5 % Platelet Count 232 130-400 10^3/uL Mean Platelet Volume 8.8 7.4-10.4 FL Immature Granulocyte % (Auto) 0 % Neutrophils (%) (Auto) 67 42-75 % Lymphocytes (%) (Auto) 26 12-44 % Monocytes (%) (Auto) 7 0-12 % Eosinophils (%) (Auto) 0 0-10 % Basophils (%) (Auto) 0 0-10 % Neutrophils # (Auto) 3.5 1.8-7.8 X 10^3 Lymphocytes # (Auto) 1.3 1.0-4.0 X 10^3 Monocytes # (Auto) 0.4 0.0-1.0 X 10^3 Eosinophils # (Auto) 0.0 0.0-0.3 10^3/uL Basophils # (Auto) 0.0 0.0-0.1 10^3/uL Immature Granulocyte # (Auto) 0.0 0.0-0.1 10^3/uL Sodium Level 135 135-145 MMOL/L Potassium Level 3.6 3.6-5.0 MMOL/L Chloride Level 97 L 98-107 MMOL/L Carbon Dioxide Level 24 21-32 MMOL/L Anion Gap 14 5-14 MMOL/L Blood Urea Nitrogen 12 7-18 MG/DL Creatinine 0.78 0.60-1.30 MG/DL Estimat Glomerular Filtration Rate > 60 BUN/Creatinine Ratio 15 Glucose Level 140 H 70-105 MG/DL Calcium Level 8.9 8.5-10.1 MG/DL Corrected Calcium 9.2 8.5-10.1 MG/DL Total Bilirubin 0.4 0.1-1.0 MG/DL Aspartate Amino Transf (AST/SGOT) 52 H 5-34 U/L Alanine Aminotransferase (ALT/SGPT) 43 0-55 U/L Alkaline Phosphatase 196 H 40-136 U/L Total Protein 7.0 6.4-8.2 GM/DL Albumin 3.6 3.2-4.5 GM/DL Smear Scan OK My Orders Orders - ROVENALEENA FERRARO DO Chest 1 View Ap/Pa Only (05/01/20 15:59) Ed Iv/Invasive Line Start (05/01/20 16:19) Cbc With Automated Diff (05/01/20 16:19) Comprehensive Metabolic Panel (05/01/20 16:19) Dexamethasone Injection (Decadron Inje (05/01/20 16:30) Azithromycin Injection (Zithromax Inject (05/01/20 16:30) Medications Given in ED Current Medications Medications Dose Ordered Sig/Jey Route Start Time Stop Time Status Last Admin Dose Admin Azithromycin 500 mg/Sodium Chloride 250 ml @ 250 mls/hr ONCE ONCE IV 05/01/20 16:30 05/01/20 17:29 05/01/20 16:26 250 MLS/HR Dexamethasone Sodium Phosphate 10 mg ONCE ONCE IV 05/01/20 16:30 05/01/20 16:31 DC 05/01/20 16:31 10 MG Vital Signs/I&O 05/01/20 15:50 Temp 36.0 Pulse 91 Resp 19 B/P (MAP) 141/72 (95) Pulse Ox 94 O2 Delivery Room Air Capillary Refill : Less Than 3 Seconds Blood Pressure Mean: 95 Progress Note : Progress Note Due to the [facility] board of pharmacy limitations in prescribing hydroxychloroquine, a prescription was sent to [facility] in [facility] and filled without any problem. Patient w 10 days of Covid infection without improvement....not taking anything but tylenol. Oxygen sats are good, CXR c/w C-19 pneumonia. Diagnostic Imaging Diagonstic Imaging: Xray Plain Films/CT/US/NM/MRI: chest Comments Date of Exam:05/01/20 CHEST 1 VIEW AP/PA ONLY INDICATION: Shortness of breath. EXAMINATION: Portable chest at 03:58 p.m. FINDINGS: There are patchy groundglass alveolar infiltrates in both lungs. There is no effusion. Heart size is normal. IMPRESSION: Patchy peripheral pulmonary infiltrates consistent with COVID pneumonia. Dictated by: Dictated on workstation # [id number] Dict: 05/01/20 1609 Trans: 05/01/201641 [facility] [id number] Interpreted by: ENOC HENLEY MD Electronically signed by: ENOC HENLEY MD 05/01/201641 Departure Impression Primary Impression: COVID-19 Disposition: 01 HOME, SELF-CARE Condition: Stable Departure-Patient Inst. Decision time for Depature: 16:59 Referrals: DOM NIX MD (PCP/Family) Primary Care Physician Patient Instructions: COVID19 Add. Discharge Instructions: Call Dr Nix with any further questions regarding your condition. RETURN to the ER for any progression of difficulty breathing All discharge instructions reviewed with patient and/or family. Voiced understanding. Scripts Azithromycin (Azithromycin) 500 Mg Tablet 500 MG PO DAILY, #4 TAB Prov: ALEENA CHAVEZ DO 05/01/20 Hydroxychloroquine Sulfate (Hydroxychloroquine Sulfate) 200 Mg Tablet 200 MG PO BID, #10 TAB Prov: ALEENA CHAVEZ DO 05/01/20 Albuterol Sulfate (PROAIR HFA) 1 Puff Puff 2 PUFF IH Q4H for Cough, #1 PUFF 1 Refill 1 PUFF = 90 MCG Prov: ALEENA CHAVEZ DO 05/01/20 Dexamethasone (Decadron) 6 Mg Tablet 6 MG PO DAILY, #5 TAB Prov: ALEENA CHAVEZ DO 05/01/20 ALEENA CHAVEZ DO May 01, 2020 16:28
[2020-05-01] MEDS ORDERED: AZITHROMYCIN INJECTION 500 MG in NS (IVPB) 250 ML IV ONE (16:30)
[2020-05-01] MEDS ORDERED: AZIT500T9 PO (16:37)
[2020-05-01] MEDS ORDERED: HYDR200T46 PO (16:37)
[2020-05-01] MEDS ORDERED: DEXA6TAB6 PO (16:37)
[2020-05-01] MEDS ORDERED: RT-ALBUINH IH (16:37)
[2020-05-01 16:38] LABS: BASOPHILS % (AUTO) 0 % (0-10); EOSINOPHILS % (AUTO) 0 % (0-10); HEMATOCRIT 36 % (35-52); HEMOGLOBIN 11.9 G/DL (11.5-16.0); LYMPHOCYTES # (AUTO) 1.3 X 10^3 (1.0-4.0); LYMPHOCYTES % (AUTO) 26 % (12-44); MEAN CORPUSCULAR HEMOGLOBIN 30 PG (25-34); MEAN CORPUSCULAR HGB CONC 33 G/DL (32-36); MEAN CORPUSCULAR VOLUME 90 FL (80-99); MEAN PLATELET VOLUME 8.8 FL (7.4-10.4); MONOCYTES % (AUTO) 7 % (0-12); NEUTROPHILS # (AUTO) 3.5 X 10^3 (1.8-7.8); NEUTROPHILS % (AUTO) 67 % (42-75); PLATELET COUNT 232 10^3/uL (130-400); WHITE BLOOD COUNT 5.2 10^3/uL (4.3-11.0)
[2020-05-01 16:39] LABS: MONOCYTES # (AUTO) 0.4 X 10^3 (0.0-1.0)
[2020-05-01 16:51] LABS: CARBON DIOXIDE 24 MMOL/L (21-32); CHLORIDE 97 MMOL/L (98-107); POTASSIUM 3.6 MMOL/L (3.6-5.0); SMEAR SCAN COMMENT OK; SODIUM 135 MMOL/L (135-145)
[2020-05-01 16:52] LABS: ALANINE AMINOTRANSFERASE 43 U/L (0-55); ALBUMIN 3.6 GM/DL (3.2-4.5); ALKALINE PHOSPHATASE 196 U/L (40-136); BILIRUBIN,TOTAL 0.4 MG/DL (0.1-1.0); BUN/CREATININE RATIO 15; CALCIUM 8.9 MG/DL (8.5-10.1); CREATININE SERUM 0.78 MG/DL (0.60-1.30); GFR ESTIMATED > 60; GLUCOSE 140 MG/DL (70-105)
[2020-05-01 17:45] VITALS: BP 121/77
== END 2020-05-01 17:45 | disposition home or self-care (01) ==
LOC: EDUNIT# 15:42 → ER FS 15:44
DX: U07.1 COVID-19 (principal); I10 Essential (primary) hypertension; Z82.49 Family history of ischemic heart disease and other diseases of the circulatory system; Z83.3 Family history of diabetes mellitus; Z85.3 Personal history of malignant neoplasm of breast; Z88.8 Allergy status to other drugs, medicaments and biological substances; Z79.82 Long term (current) use of aspirin
CPT/HCPCS: 36415; 71045; 80053; 85025

== ENCOUNTER 2020-05-02 17:25 | Emergency (ER) | payer MEDICAID ==
[~2020-05-02] VITALS: Ht 167 cm; Wt 80.0 kg
[~2020-05-02 17:25] MED LIST changes: +AZIT500T9 PO; +DEXA6TAB6 PO; +HYDR200T46 PO; +RT-ALBUINH IH
[2020-05-02] MEDS ORDERED: NS IV 1000 ML 1,000 ML ONE (17:44)
[2020-05-02] MEDS ORDERED: NS IV 1000 ML 1,000 ML IV SCH (17:44)
--- NOTE | 2020-05-02 17:48 | ED Cough/URI ---
General Chief Complaint: Respiratory Problems Stated Complaint: COVID POSITIVE,SOA Source: patient Exam Limitations: no limitations History of Present Illness Date Seen by Provider: May 02, 2020 Time Seen by Provider: 17:47 Initial Comments 59-year-old female presents with cough, shortness of breath, generalized malaise. Patient is known positive for COVID. Her symptoms started approximately 10 days ago. Patient was seen yesterday in the ER and given dexamethasone, prescribed outpatient steroids, hydroxychloroquine:, Zinc, vitamin C, vitamin D. Patient doesn't report any fevers, she is just here because she feels worse since he did yesterday. Patient did not start the hydroxychloroquine that started all the other medications. Allergies and Home Medications Allergies Coded Allergies: codeine (Verified Allergy, Mild, RASH, 05/11/19) Home Medications Albuterol Sulfate 1 Puff Puff, 2 PUFF IH Q4H 1 PUFF = 90 MCG Prescribed by: ALEENA CAHVEZ on 05/01/20 1637 Aspirin 81 Mg Tablet.dr, 81 MG PO DAILY, (Reported) Azithromycin 500 Mg Tablet, 500 MG PO DAILY Prescribed by: ALEENA CHAVEZ on 05/01/20 1637 Dexamethasone 6 Mg Tablet, 6 MG PO DAILY Prescribed by: ALEENA CHAVEZ on 05/01/20 1637 Docusate Sodium 100 Mg Capsule, 100 MG PO BID PRN for CONSTIPATION-1ST LINE, (Reported) Hydroxychloroquine Sulfate 200 Mg Tablet, 200 MG PO BID Prescribed by: ALEENA CHAVEZ on 05/01/20 1637 Loperamide HCl 2 Mg Tablet, 2 MG PO UD PRN for DIARRHEA, (Reported) Meloxicam 15 Mg Tablet, 15 MG PO DAILY PRN for BACK/KNEE PAIN, (Reported) Metoprolol Succinate 100 Mg Tab.er.24h, 100 MG PO DAILY Prescribed by: CHEPE DIETZ on 06/10/19 1132 Patient Home Medication List Home Medication List Reviewed: Yes Review of Systems Review of Systems Constitutional: No chills, No fever; malaise EENTM: no symptoms reported Respiratory: cough, short of breath Cardiovascular: No chest pain, No palpitations Gastrointestinal: No abdominal pain, No nausea, No vomiting Genitourinary: no symptoms reported Musculoskeletal: see HPI Skin: no symptoms reported Psychiatric/Neurological: See HPI Hematologic/Lymphatic: No Symptoms Reported Past Huhsjvj-Luipji-Gyywwv Hx Past Med/Social Hx: Reviewed Nursing Past Med/Soc Hx Patient Social History Alcohol Use: Denies Use Recreational Drug Use: No Smoking Status: Former Smoker Former Smoker, Quit: May 11, 1980 2nd Hand Smoke Exposure: No Recent Foreign Travel: No Contact w/Someone Who Travel: No Recent Hopitalizations: No Physical Abuse: No Sexual Abuse: No Mistreated: No Fear: No Seasonal Allergies Seasonal Allergies: No (MILD) Past Medical History Surgeries: Yes (BREAST BIOPSY, RTK) Respiratory: No Cardiac: Yes Hypertension Neurological: No Sexually Transmitted Disease: No HIV/AIDS: No Genitourinary: No Gastrointestinal: Yes Gastroesophageal Reflux, Chronic Constipation, Chronic Diarrhea Musculoskeletal: Yes (OSTEOARTHRITIS) Arthritis, Chronic Back Pain Endocrine: Yes (BOARDER LINE DIABETES) HEENT: Yes (GLASSES) Loss of Vision: Denies Hearing Impairment: Denies Cancer: Yes Breast Did You Recieve Any Treatments: Yes What Type of Treatment Did You: Surgical Intervention Psychosocial: Yes (HX ANXIETY) Integumentary: No Blood Disorders: No Adverse Reaction/Blood Tranf: No (N/A) Family Medical History Alcoholism Cardiovascular disease Diabetes mellitus Hypertension Myocardial infarction Physical Exam Vital Signs - First Documented 05/02/20 17:35 Temp 36.7 Pulse 91 Resp 18 B/P (MAP) 125/87 (100) Pulse Ox 97 O2 Delivery Room Air Capillary Refill : Height: '" Weight: lbs. oz. kg; 31.00 BMI Method: General Appearance: other (ill but no distress) HEENT: PERRL/EOMI Neck: full range of motion, supple Respiratory: no respiratory distress, no accessory muscle use, decreased breath sounds (mild bilateral) Cardiovascular: normal peripheral pulses, regular rate, rhythm Gastrointestinal: non tender, soft Neurologic/Psychiatric: alert, normal mood/affect, oriented x 3 Skin: normal color, warm/dry Focused Exam Lactate Level 05/02/20 17:50: Lactic Acid Level 2.29*H Lactic Acid Level Laboratory Tests Test 05/02/20 17:50 Lactic Acid Level 2.29 MMOL/L (0.50-2.00) *H Progress/Results/Core Measures Suspected Sepsis SIRS Temperature: Pulse: Respiratory Rate: Laboratory Tests 05/02/20 17:45: White Blood Count 4.6 Blood Pressure / Mean: 05/02/20 17:50: Lactic Acid Level 2.29*H Laboratory Tests 05/02/20 17:45: Creatinine 0.57L, Platelet Count 299, Total Bilirubin 0.3 Results/Orders Lab Results Laboratory Tests Test 05/02/20 17:45 05/02/20 17:50 Range/Units White Blood Count 4.6 4.3-11.0 10^3/uL Red Blood Count 4.16 L 4.35-5.85 10^6/uL Hemoglobin 12.4 11.5-16.0 G/DL Hematocrit 37 35-52 % Mean Corpuscular Volume 90 80-99 FL Mean Corpuscular Hemoglobin 30 25-34 PG Mean Corpuscular Hemoglobin Concent 33 32-36 G/DL Red Cell Distribution Width 13.2 10.0-14.5 % Platelet Count 299 130-400 10^3/uL Mean Platelet Volume 8.9 7.4-10.4 FL Immature Granulocyte % (Auto) 1 % Neutrophils (%) (Auto) 80 H 42-75 % Lymphocytes (%) (Auto) 15 12-44 % Monocytes (%) (Auto) 4 0-12 % Eosinophils (%) (Auto) 0 0-10 % Basophils (%) (Auto) 0 0-10 % Neutrophils # (Auto) 3.6 1.8-7.8 X 10^3 Lymphocytes # (Auto) 0.7 L 1.0-4.0 X 10^3 Monocytes # (Auto) 0.2 0.0-1.0 X 10^3 Eosinophils # (Auto) 0.0 0.0-0.3 10^3/uL Basophils # (Auto) 0.0 0.0-0.1 10^3/uL Immature Granulocyte # (Auto) 0.1 0.0-0.1 10^3/uL Neutrophils % (Manual) 75 % Lymphocytes % (Manual) 11 % Monocytes % (Manual) 4 % Eosinophils % (Manual) 0 % Basophils % (Manual) 0 % Metamyelocytes % 2 % Myelocytes % 1 % Band Neutrophils 5 % Atypical Lymphocytes 1 % Blast Cells 1 % Sodium Level 139 135-145 MMOL/L Potassium Level 3.6 3.6-5.0 MMOL/L Chloride Level 99 98-107 MMOL/L Carbon Dioxide Level 24 21-32 MMOL/L Anion Gap 16 H 5-14 MMOL/L Blood Urea Nitrogen 12 7-18 MG/DL Creatinine 0.57 L 0.60-1.30 MG/DL Estimat Glomerular Filtration Rate > 60 BUN/Creatinine Ratio 21 Glucose Level 348 H 70-105 MG/DL Calcium Level 9.1 8.5-10.1 MG/DL Corrected Calcium 9.3 8.5-10.1 MG/DL Total Bilirubin 0.3 0.1-1.0 MG/DL Aspartate Amino Transf (AST/SGOT) 47 H 5-34 U/L Alanine Aminotransferase (ALT/SGPT) 56 H 0-55 U/L Alkaline Phosphatase 200 H 40-136 U/L C-Reactive Protein 8.34 H <0.50 MG/DL Total Protein 7.6 6.4-8.2 GM/DL Albumin 3.7 3.2-4.5 GM/DL Lactic Acid Level 2.29 *H 0.50-2.00 MMOL/L Micro Results Microbiology 05/02/20 Influenza Types A,B Antigen (INA) - Final, Complete My Orders Orders - CARLY NICHOLS DO Cbc With Automated Diff (05/02/20 17:44) Comprehensive Metabolic Panel (05/02/20 17:44) Lactic Acid Analyzer (05/02/20 17:44) Crp Fs (05/02/20 17:44) Ed Iv/Invasive Line Start (05/02/20 17:44) Ns Iv 1000 Ml (Sodium Chloride 0.9%) (05/02/20 17:44) Chest 1 View Ap/Pa Only (05/02/20 17:44) Ns Iv 1000 Ml (Sodium Chloride 0.9%) (05/02/20 17:44) Influenza A And B Antigens (05/02/20 17:48) Famotidine Injection (Pepcid Injection) (05/02/20 17:49) Manual Differential (05/02/20 17:45) Vital Signs/I&O 05/02/20 05/02/20 17:35 18:34 Temp 36.7 36.7 Pulse 91 85 Resp 18 18 B/P (MAP) 125/87 (100) 136/80 Pulse Ox 97 99 O2 Delivery Room Air Room Air Capillary Refill : Progress Note : Time: 18:38 Progress Note Patient oxygen saturations were running in the mid to high 90s throughout her stay. She her labs are very similar to what they were yesterday. She has minimal increase in her pneumonia. Discussed with her that this time there is no additional benefit from hospitalization due to her oxygen levels running in the high. To continue her outpatient treatment. She states hydrated, get plenty or rest. She should return the ER if symptoms continue to worsen for another evaluation. Diagnostic Imaging Diagonstic Imaging: Xray Plain Films/CT/US/NM/MRI: chest Comments [facility]. [place], [place] NAME: BENITEZ BUTLER [facility] REC#: [id number] PT STATUS: REG ER : 1960 PHYSICIAN: CARLY NICHOLS DO ADMIT DATE: 05/02/20/ER FS Draft Date of Exam:05/02/20 CHEST 1 VIEW AP/PA ONLY INDICATION: Shortness of breath. COMPARISON: 05/01/2020. TECHNIQUE: Single radiograph of the chest dated May 02, 2020. FINDINGS: The cardiac silhouette is stable. No significant pulmonary vascular congestion. Multiple metallic densities are again identified overlying the right lung base, likely within the right breast. Extensive patchy bilateral pulmonary opacities are again noted, greatest within the peripheral lungs. Findings appear slightly worsened since the prior examination, particularly the lung bases. No significant pleural effusion. No pneumothorax. No acute osseous abnormality. IMPRESSION: Slightly worsening extensive bilateral pulmonary infiltrates, particularly within the lung bases. This is favored to relate to an atypical pneumonia, such as Covid. Dictated on workstation # [id number] Dict: 05/02/20 1805 Trans: 05/02/20 1820 [facility] [id number] Interpreted by: SOHEILA HYLTON MD Electronically signed by: Departure Impression Primary Impression: Pneumonia due to COVID-19 virus Disposition: 01 HOME, SELF-CARE Condition: Stable Departure-Patient Inst. Referrals: DOM NIX MD (PCP/Family) Primary Care Physician Patient Instructions: Coronavirus Disease 2019 (COVID-19) Overview Add. Discharge Instructions: Continue current outpatient therapies Get plenty of rest Return to the ER as needed for worsening symptoms All discharge instructions reviewed with patient and/or family. Voiced understanding. CARLY NICHOLS DO May 02, 2020 17:47
[2020-05-02] MEDS ORDERED: FAMOTIDINE 20MG/2ML IV (PEPCID) IV STA (17:49)
[2020-05-02 18:01] LABS: BASOPHILS % (AUTO) 0 % (0-10); EOSINOPHILS % (AUTO) 0 % (0-10); HEMATOCRIT 37 % (35-52); HEMOGLOBIN 12.4 G/DL (11.5-16.0); LYMPHOCYTES % (AUTO) 15 % (12-44); MEAN CORPUSCULAR HEMOGLOBIN 30 PG (25-34); MEAN CORPUSCULAR HGB CONC 33 G/DL (32-36); MEAN CORPUSCULAR VOLUME 90 FL (80-99); MEAN PLATELET VOLUME 8.9 FL (7.4-10.4); MONOCYTES % (AUTO) 4 % (0-12); NEUTROPHILS % (AUTO) 80 % (42-75); PLATELET COUNT 299 10^3/uL (130-400); WHITE BLOOD COUNT 4.6 10^3/uL (4.3-11.0)
[2020-05-02 18:02] LABS: LYMPHOCYTES # (AUTO) 0.7 X 10^3 (1.0-4.0); MONOCYTES # (AUTO) 0.2 X 10^3 (0.0-1.0); NEUTROPHILS # (AUTO) 3.6 X 10^3 (1.8-7.8)
[2020-05-02 18:18] LABS: ALANINE AMINOTRANSFERASE 56 U/L (0-55); ALKALINE PHOSPHATASE 200 U/L (40-136); BILIRUBIN,TOTAL 0.3 MG/DL (0.1-1.0); BUN/CREATININE RATIO 21; CALCIUM 9.1 MG/DL (8.5-10.1); CARBON DIOXIDE 24 MMOL/L (21-32); CHLORIDE 99 MMOL/L (98-107); CREATININE SERUM 0.57 MG/DL (0.60-1.30); GFR ESTIMATED > 60; GLUCOSE 348 MG/DL (70-105); POTASSIUM 3.6 MMOL/L (3.6-5.0); SODIUM 139 MMOL/L (135-145)
[2020-05-02 18:19] LABS: ALBUMIN 3.7 GM/DL (3.2-4.5); TOTAL PROTEIN 7.6 GM/DL (6.4-8.2)
--- NOTE | 2020-05-02 18:22 | Diagnostic Imaging Report ---
INDICATION: Shortness of breath. COMPARISON: 05/01/2020. TECHNIQUE: Single radiograph of the chest dated May 02, 2020. FINDINGS: The cardiac silhouette is stable. No significant pulmonary vascular congestion. Multiple metallic densities are again identified overlying the right lung base, likely within the right breast. Extensive patchy bilateral pulmonary opacities are again noted, greatest within the peripheral lungs. Findings appear slightly worsened since the prior examination, particularly the lung bases. No significant pleural effusion. No pneumothorax. No acute osseous abnormality. IMPRESSION: Slightly worsening extensive bilateral pulmonary infiltrates, particularly within the lung bases. This is favored to relate to an atypical pneumonia, such as Covid. Dictated by: Dictated on workstation # [id number]
[2020-05-02 18:31] LABS: ATYPICAL LYMPHOCYTES 1 %; BAND NEUTROPHILS 5 %; BASOPHILS % (MANUAL) 0 %; BLAST CELLS 1 %; EOSINOPHILS % (MANUAL) 0 %; LYMPHOCYTES % (MANUAL) 11 %; METAMYELOCYTES % 2 %; MONOCYTES % (MANUAL) 4 %; MYELOCYTES % 1 %; NEUTROPHILS % (MANUAL) 75 %
[2020-05-02 18:34] VITALS: BP 136/80
== END 2020-05-02 18:45 | disposition home or self-care (01) ==
LOC: EDUNIT# 17:25 → ER FS 17:27
DX: U07.1 COVID-19 (principal); J12.89 Other viral pneumonia; I10 Essential (primary) hypertension; Z82.49 Family history of ischemic heart disease and other diseases of the circulatory system; Z83.3 Family history of diabetes mellitus; Z85.3 Personal history of malignant neoplasm of breast; Z87.891 Personal history of nicotine dependence; Z88.5 Allergy status to narcotic agent; Z79.82 Long term (current) use of aspirin
CPT/HCPCS: 36415; 71045; 80053; 83605; 85007; 85027; 86141; 87804

== ENCOUNTER 2020-07-15 11:41 | Outpatient (RCR) | payer MEDICAID ==
[~2020-07-15] VITALS: Ht 167.7 cm; Wt 92.3 kg
[~2020-07-15 11:41] MED LIST changes: -ASCO100024 PO; -CALC-903 PO; -LOSA50TA63 PO; -PANT40TA52 PO; -ZINC50TA51 PO
[2020-07-15] MEDS ORDERED: ASCO100024 PO (14:34)
[2020-07-15] MEDS ORDERED: CALC-903 PO (14:34)
[2020-07-15] MEDS ORDERED: LOSA50TA63 PO (14:34)
[2020-07-15] MEDS ORDERED: ASPI-1238 PO (14:34)
[2020-07-15] MEDS ORDERED: ZINC50TA51 PO (14:34)
[2020-07-15] MEDS ORDERED: PANT40TA52 PO (14:34)
[2020-07-15] MEDS ORDERED: MTP100TCR PO (14:34)
== END 2020-07-15 15:00 | disposition home or self-care (01) ==
LOC: PREOP 11:41
PROVIDERS: ATTEND Surgery
DX: Z01.812 Encounter for preprocedural laboratory examination (principal); Z12.11 Encounter for screening for malignant neoplasm of colon; K21.9 Gastro-esophageal reflux disease without esophagitis; R11.2 Nausea with vomiting, unspecified

== ENCOUNTER → 2020-07-15 | Outpatient (CLI) | payer MEDICAID ==
[~2020-07-15] MED LIST changes: +ASCO100024 PO; +CALC-903 PO; +LOSA50TA63 PO; +PANT40TA52 PO; +ZINC50TA51 PO
--- NOTE | 2020-07-15 12:11 | Diagnostic Imaging Report ---
PROCEDURE: US Gallbladder. TECHNIQUE: Multiple real-time grayscale images were obtained over the right upper quadrant in various projections. INDICATION: Gastroesophageal reflux. FINDINGS: Liver is normal in size. There is no biliary ductal dilatation. Common bile duct measures 6 mm. There is no cholelithiasis, gallbladder wall thickening or pericholecystic fluid. The visualized portions of the pancreas are unremarkable. Right kidney is normal. There is no ascites. IVC is patent. Hepatopetal flow in the main portal vein. IMPRESSION: Unremarkable right upper quadrant ultrasound. Dictated by: Dictated on workstation # [id number]
== END ==
LOC: RAD FS 10:31
PROVIDERS: ATTEND Surgery
DX: K21.9 Gastro-esophageal reflux disease without esophagitis (principal)
CPT/HCPCS: 76705

== ENCOUNTER 2020-07-23 12:44 | Day surgery (SDC) | payer MEDICAID ==
[2020-07-23] VITALS (9 sets, daily range): BP systolic 134–158; BP diastolic 67–94
[~2020-07-23] VITALS: Ht 165.1 cm; Wt 92.3 kg
[~2020-07-23 12:44] MED LIST changes: +ASCO100024 PO; +CALC-903 PO; +LOSA50TA63 PO; +PANT40TA52 PO; +ZINC50TA51 PO
[2020-07-23] MEDS ORDERED: LACTATED RINGERS 1,000 ML IV ONE (12:48)
[2020-07-23] MEDS ORDERED: LACTATED RINGERS 1,000 ML IV STA (12:53)
--- NOTE | 2020-07-23 12:55 | Progress Note-Pre Operative ---
Pre-Operative Progress Note H&P Reviewed The H&P was reviewed, patient examined and no changes noted. Date Seen by Provider: Jul 23, 2020 Time Seen by Provider: 12:54 Date H&P Reviewed: Jul 23, 2020 Time H&P Reviewed: 12:54 Pre-Operative Diagnosis: N/V, GERD, screening colonscopy DEDE FIELDS DO Jul 23, 2020 12:55
[2020-07-23] MEDS ORDERED: LIDOCAINE JELLY 2% 6 ML SYRINGE MM PRN (13:00)
[2020-07-23] MEDS ORDERED: PROPOFOL INJECTION 50 ML IV ONE (13:13)
[2020-07-23] MEDS ORDERED: MIDAZOLAM 2 MG/2 ML (VERSED) VIAL ONE (13:13)
--- NOTE | 2020-07-23 14:17 | Progress Note-Post Operative ---
Post-Operative Progess Note Surgeon (s)/Cylinder Machine Operator Pulp Drier (s) Surgeon DEDE FIELDS DO Cylinder Machine Operator Pulp Drier: na Pre-Operative Diagnosis N/V, GERD, screening colonscopy Post-Operative Diagnosis hiatal hernia, descending colon polyp Procedure & Operative Findings Date of Procedure 07/23/20 Procedure Performed/Findings egd c biopsies, colonoscopy c hot bx polypectomy Anesthesia Type per nylon operator Estimated Blood Loss Estimated blood loss (mL): none Specimens/Packing Specimens Removed antrum, ge, colon polyp DEDE FIELDS DO Jul 23, 2020 14:17
--- NOTE | 2020-07-23 14:19 | Discharge Inst-Simple/Standard ---
Discharge Inst-Standard Patient Instructions/Follow Up Plan of Care/Instructions/FU: 2 weeks Nathalia Activity as Tolerated: Yes Discharge Diet: Regular Diet (high fiber) DEDE FIELDS DO Jul 23, 2020 14:19
--- NOTE | 2020-07-23 21:13 | OPERATIVE REPORT ---
DATE OF SERVICE: 07/23/2020 PREOPERATIVE DIAGNOSES: Nausea, vomiting, screening colonoscopy. POSTOPERATIVE DIAGNOSES: Hiatal hernia, descending colon polyp, diverticulosis. PROCEDURE: EGD with biopsies, colonoscopy with hot biopsy polypectomy. SURGEON: Dede Sloan DO ANESTHESIA: Per HOME OFFICE CLAIMS EXAMINER. ESTIMATED BLOOD LOSS: None. COMPLICATIONS: None. SPECIMENS: Antrum, GE junction and colon polyp of descending colon. INDICATIONS: The patient is a 59-year-old female with nausea, vomiting, GERD and needing a screening colonoscopy. She understands risks and benefits of procedure and wished to proceed with procedure. Consent was signed in the chart. DESCRIPTION OF PROCEDURE: The patient was taken to the endoscopy suite, placed in left lateral recumbent position. Timeout was performed. Scope was inserted in mouth, down the esophagus, stomach and into the duodenum without difficulty. No polyps, masses or ulcerations within the duodenum. Scope was slowly retracted back into the stomach where it was further insufflated. No polyps, masses or ulcerations. Minimal erythematous changes. Biopsy of the antrum was obtained. Scope was retroflexed noting a small hiatal hernia. No polyps, masses or ulcerations. Scope was returned to its normal position, slowly withdrawn to distal esophagus. Biopsy of GE junction was obtained. No polyps, masses or ulcerations. Scope was slowly retracted back until completely removed. The patient tolerated procedure well. Digital rectal exam was performed. No palpable polyps, masses or ulcerations. Scope was inserted in the rectum and advanced all the way to cecum with minimal difficulty. Prep was adequate. Scope was then slowly retracted back. There were no polyps, masses or ulcerations within the cecum, ascending, transverse colon. In the descending colon, a small polyp was present. Hot biopsy polypectomy was performed. Scope was continuously retracted back. Diverticulosis of the sigmoid colon. Scope was then continuously retracted back into the rectum where it was attempted to be retroflexed, but too narrow. Therefore, multiple insertions and retractions were made noting no other pathology. Scope was then slowly retracted back until completely removed. The patient tolerated procedure well without any complications. She was taken to recovery room in stable condition. RECOMMENDATIONS: The patient will follow up in the office in two to three weeks to discuss pathology results. The patient recommended high fiber diet due to diverticulosis. The patient will need repeat colonoscopy in 5 years due to colon polyps. Any issues before that, will be seen at that time. Job ID: [id number] DocumentID: [id number] Dictated Date: 07/23/2020 14:21:56 [employer] Counter Assistant Date: 07/23/2020 21:12:13 Dictated By: DEDE SLOAN DO
--- NOTE | 2020-07-24 09:59 | Anesthesia-General Post-Op ---
MAC Significant Intra-Op Events Notes addendum 07-23-20 at 1400 Patient Condition Mental Status/LOC: Same as Preop Cardiovascular: Satisfactory Nausea/Vomiting: Absent Respiratory: Satisfactory Pain: Controlled Complications: Absent Post Op Complications Complications None Follow Up Care/Instructions Patient Instructions None needed. Anesthesiology Discharge Order Discharge Order Patient is doing well, no complaints, stable vital signs, no apparent adverse anesthesia problems. No complications reported per nursing. ANDREA LOMBARDO CRNA Jul 24, 2020 09:59
== END 2020-07-23 15:05 | disposition home or self-care (01) ==
LOC: ENDO 12:44
PROVIDERS: ATTEND Surgery
DX: Z12.11 Encounter for screening for malignant neoplasm of colon (principal); D12.4 Benign neoplasm of descending colon; K29.50 Unspecified chronic gastritis without bleeding; K57.30 Diverticulosis of large intestine without perforation or abscess without bleeding; K44.9 Diaphragmatic hernia without obstruction or gangrene; K21.9 Gastro-esophageal reflux disease without esophagitis; I10 Essential (primary) hypertension; E11.40 Type 2 diabetes mellitus with diabetic neuropathy, unspecified; F41.9 Anxiety disorder, unspecified; E66.9 Obesity, unspecified; Z68.33 Body mass index [BMI] 33.0-33.9, adult; Z79.899 Other long term (current) drug therapy; Z79.51 Long term (current) use of inhaled steroids; Z88.5 Allergy status to narcotic agent; Z88.8 Allergy status to other drugs, medicaments and biological substances; Z87.891 Personal history of nicotine dependence; Z85.3 Personal history of malignant neoplasm of breast
CPT/HCPCS: 88305

== ENCOUNTER 2022-07-04 16:04 | Emergency (ER) | payer MEDICARE, MEDICAID ==
[~2022-07-04] VITALS: Ht 167.7 cm; Wt 94.3 kg
[~2022-07-04 16:04] MED LIST changes: +ALBU8.5H6 IH; -OXYC-471 PO; +OXYC1TAB11 PO; -RT-ALBUINH IH
[2022-07-04] MEDS ORDERED: CYCLOBENZAPRINE 10 MG (FLEXERIL) TAB PO SCH (16:30)
[2022-07-04] MEDS ORDERED: HYDROcodone/APAP 5 MG/325 MG (LORTAB) TAB PO ONE (16:30)
--- NOTE | 2022-07-04 16:40 | Diagnostic Imaging Report ---
HISTORY: Left knee pain. TECHNIQUE: Three views of the left knee. COMPARISON: None. FINDINGS: No acute fracture or dislocation is seen in the left knee. Alignment appears normal. There are severe degenerative changes in the medial compartment and moderate in the lateral compartment. No joint effusion is seen. IMPRESSION: 1. No acute fracture is seen in the left knee. 2. Advanced degenerative change, particularly the medial compartment. Dictated by: Dictated on workstation # [id number]
[2022-07-04 16:46] LABS: BASOPHILS % (AUTO) 0 % (0-10); EOSINOPHILS # (AUTO) 0.1 10^3/uL (0.0-0.3); EOSINOPHILS % (AUTO) 1 % (0-10); HEMATOCRIT 44 % (35-52); HEMOGLOBIN 14.3 g/dL (11.5-16.0); LYMPHOCYTES # (AUTO) 2.6 10^3/uL (1.0-4.0); LYMPHOCYTES % (AUTO) 34 % (12-44); MEAN CORPUSCULAR HEMOGLOBIN 29 pg (25-34); MEAN CORPUSCULAR HGB CONC 33 g/dL (32-36); MEAN CORPUSCULAR VOLUME 89 fL (80-99); MEAN PLATELET VOLUME 8.9 fL (9.0-12.2); MONOCYTES # (AUTO) 0.5 10^3/uL (0.0-1.0); MONOCYTES % (AUTO) 7 % (0-12); NEUTROPHILS # (AUTO) 4.4 10^3/uL (1.8-7.8); NEUTROPHILS % (AUTO) 58 % (42-75); PLATELET COUNT 255 10^3/uL (130-400); WHITE BLOOD COUNT 7.6 10^3/uL (4.3-11.0)
--- NOTE | 2022-07-04 16:58 | ED Lower Extremity ---
General Chief Complaint: Lower Extremity Stated Complaint: LT LEG/HIP PAIN Nursing Triage Note: Patient reports she has had lower back pain and left knee pain for 2 days. She states she was walking around [employer] today and her left knee almost gave out. Source: patient Exam Limitations: no limitations History of Present Illness Date Seen by Provider: Jul 04, 2022 Time Seen by Provider: 16:15 Initial Comments Patient is a 61-year-old female who presents with low back pain, left posterior knee pain and aching for the past 2 days. Pain is worse with worse with ambu lation and range of motion. Patient also reports chronic left low back pain. Patient has advanced osteoarthritis of her left knee and was instructed form that she would require knee replacement 3 years ago but had to delay surgery due to breast cancer diagnosis. Onset: other Severity: moderate Method of Injury: other Modifying Factors: Improves With Other Allergies and Home Medications Allergies Coded Allergies: codeine (Verified Allergy, Mild, RASH, 05/11/19) diphenhydramine (Verified Allergy, Unknown, 07/04/22) promethazine (Verified Allergy, Unknown, 07/15/20) RASH Patient Home Medication List Home Medication List Reviewed: Yes Ascorbic Acid (Vitamin C) 1,000 Mg Tablet, 1,000 MG PO DAILY, (Reported) Entered as Reported by: FILOMENA SILVER on 07/15/20 1434 Aspirin (Aspirin EC) 81 Mg Tablet.dr, 81 MG PO DAILY, (Reported) Entered as Reported by: FILOMENA SILVER on 07/15/20 1434 Calcium Carbonate/Vitamin D3 (Calcium 600 + Vit D3 Caplet) 1 Each Tablet, 1 EACH PO DAILY, (Reported) Entered as Reported by: FILOMENA SILVER on 07/15/20 1434 Docusate Sodium (Colace) 100 Mg Capsule, 100 MG PO BID PRN for CONSTIPATION-1ST LINE, (Reported) Entered as Reported by: MAURICE BENTON on 06/09/19 1038 Loperamide HCl (Imodium A-D) 2 Mg Tablet, 2 MG PO UD PRN for DIARRHEA, (Reported) Entered as Reported by: MAURICE BENTON on 06/09/19 1038 Losartan Potassium (Losartan Potassium) 50 Mg Tablet, 50 MG PO DAILY, (Reported) Entered as Reported by: FILOMENA SILVER on 07/15/20 1434 Metoprolol Succinate (Metoprolol Succinate) 100 Mg Tab.er.24h, 100 MG PO DAILY, (Reported) Entered as Reported by: FILOMENA SILVER on 07/15/20 1434 Pantoprazole Sodium (Pantoprazole Sodium) 40 Mg Tablet.dr, 40 MG PO DAILY, (Re ported) Entered as Reported by: FILOMENA SILVER on 07/15/20 1434 Zinc Amino Acid Chelate (Zinc) 50 Mg Tablet, 50 MG PO DAILY, (Reported) Entered as Reported by: FILOMENA SILVER on 07/15/20 1434 Review of Systems Constitutional: see HPI Musculoskeletal: see HPI Past [id number] Hx Patient Social History Tobacco Use?: No Substance use?: No Alcohol Use?: No Pt feels they are or have been: No Seasonal Allergies Seasonal Allergies: Yes (MILD) Past Medical History Surgery/Hospitalization HX: arthritis, breast cancer, DM, HTN, high cholesterol, GERD Surgeries: Yes (BREAST BIOPSY, RTK; LIPOMA ) Tonsillectomy Respiratory: No (HX OF COVID 04/23/2020) Cardiac: Yes (TACHYCARDIA ) Hypertension Neurological: No Sexually Transmitted Disease: No HIV/AIDS: No Genitourinary: No Gastrointestinal: Yes Gastroesophageal Reflux, Chronic Constipation, Chronic Diarrhea Musculoskeletal: Yes (OSTEOARTHRITIS) Arthritis, Chronic Back Pain Endocrine: Yes ("MAYBE BORDERLINE DIABETES- NO DIAGNOSIS" ) HEENT: Yes (GLASSES) Loss of Vision: Denies Hearing Impairment: Denies Cancer: Yes Breast Did You Recieve Any Treatments: Yes What Type of Treatment Did You: Radiation, Surgical Intervention Psychosocial: Yes (HX OF ANXIETY) Anxiety Integumentary: No Blood Disorders: No Adverse Reaction/Blood Tranf: No (N/A) Family Medical History Alcoholism Cardiovascular disease Diabetes mellitus Hypertension Myocardial infarction Physical Exam Vital Signs Vital Signs - First Documented 07/04/22 16:05 Temp 36.3 Pulse 82 Resp 18 B/P (MAP) 173/90 (117) Pulse Ox 96 O2 Delivery Room Air Capillary Refill : Less Than 3 Seconds Height, Weight, BMI Height: '" Weight: lbs. oz. kg; 33.00 BMI Method: General Appearance: moderate distress, other (Anxious) Cardiovascular: other (Femoral pulses, 2+, popliteal pulses, 2+, dorsal pedal pulses 2+all pulses symmetric) Back: no CVA tenderness, muscle spasm (Left lower lumbar paravertebral pain/tenderness) Hips: bilateral hip normal range of motion Knees: bilateral knee normal range of motion (Pain with range of motion); left knee soft tissue tenderness (Posterior knee pain, no pulsatile masses soft tissue swelling appreciated) Progress/Results/Core Measures Results/Orders Lab Results Laboratory Tests Test 07/04/22 16:43 Range/Units White Blood Count 7.6 4.3-11.0 10^3/uL Red Blood Count 4.87 3.80-5.11 10^6/uL Hemoglobin 14.3 11.5-16.0 g/dL Hematocrit 44 35-52 % Mean Corpuscular Volume 89 80-99 fL Mean Corpuscular Hemoglobin 29 25-34 pg Mean Corpuscular Hemoglobin Concent 33 32-36 g/dL Red Cell Distribution Width 14.6 H 10.0-14.5 % Platelet Count 255 130-400 10^3/uL Mean Platelet Volume 8.9 L 9.0-12.2 fL Immature Granulocyte % (Auto) 0 % Neutrophils (%) (Auto) 58 42-75 % Lymphocytes (%) (Auto) 34 12-44 % Monocytes (%) (Auto) 7 0-12 % Eosinophils (%) (Auto) 1 0-10 % Basophils (%) (Auto) 0 0-10 % Neutrophils # (Auto) 4.4 1.8-7.8 10^3/uL Lymphocytes # (Auto) 2.6 1.0-4.0 10^3/uL Monocytes # (Auto) 0.5 0.0-1.0 10^3/uL Eosinophils # (Auto) 0.1 0.0-0.3 10^3/uL Basophils # (Auto) 0.0 0.0-0.1 10^3/uL Immature Granulocyte # (Auto) 0.0 0.0-0.1 10^3/uL D-Dimer 1.13 H 0.00-0.49 UG/ML Sodium Level 138 135-145 MMOL/L Potassium Level 3.8 3.6-5.0 MMOL/L Chloride Level 99 98-107 MMOL/L Carbon Dioxide Level 27 21-32 MMOL/L Anion Gap 12 5-14 MMOL/L Blood Urea Nitrogen 19 H 7-18 MG/DL Creatinine 0.89 0.60-1.30 MG/DL Estimat Glomerular Filtration Rate 73 BUN/Creatinine Ratio 21 Glucose Level 165 H 70-105 MG/DL Calcium Level 9.9 8.5-10.1 MG/DL Corrected Calcium 9.5 8.5-10.1 MG/DL Total Bilirubin 0.3 0.1-1.0 MG/DL Aspartate Amino Transf (AST/SGOT) 21 5-34 U/L Alanine Aminotransferase (ALT/SGPT) 31 0-55 U/L Alkaline Phosphatase 216 H 40-136 U/L Total Protein 7.7 6.4-8.2 GM/DL Albumin 4.5 3.2-4.5 GM/DL My Orders Orders - CHRIS SHELTON DO Hydrocodone/Apap 5/325 Tablet (Lortab 5 (07/04/22 16:30) Cyclobenzaprine Tablet (Flexeril Tablet) (07/04/22 16:30) Knee 3 View Left (07/04/22 16:22) Cbc With Automated Diff (07/04/22 16:22) Comprehensive Metabolic Panel (07/04/22 16:22) Fibrin Degradation Products (07/04/22 16:22) Enoxaparin Injection (Lovenox Injection) (07/04/22 17:45) Medications Given in ED Current Medications Medications Dose Ordered Sig/Jey Route Start Time Stop Time Status Last Admin Dose Admin Acetaminophen/ Hydrocodone Bitart 1 ea ONCE ONCE PO 07/04/22 16:30 07/04/22 16:31 DC 07/04/22 16:30 1 EA Vital Signs/I&O 07/04/22 16:05 Temp 36.3 Pulse 82 Resp 18 B/P (MAP) 173/90 (117) Pulse Ox 96 O2 Delivery Room Air Blood Pressure Mean: 117 Departure Communication (Admissions) X-ray left knee: Advanced osteoarthritis per radiology report. Patient with posterior knee pain with reports of knee giving out. Advanced degenerative disease present on x-ray. Patient has diagnosis of breast cancer currently in remission and on hormone replacement therapy. D-dimer is greater than 1. Ultrasound is indicated to rule out DVT. However, ultrasound is not available at this facility. Case discussed with Dr. Owen on the ER duty physician at [facility] who accepts care of this patient. Patient offered transportation by ambulance but prefers to go by private vehicle. She is instructed to go straight to [facility] emergency department and check in at triage desk to arrange for ultrasound. Patient verbalizes understanding agreement with transfer instructions. Impression Primary Impression: Left knee pain Disposition: 02 XFER SHT-TRM HOSP Condition: Stable Transfer Transfer Reason: Exceeds level of care Time Spoke to Accepting Phy: 17:51 (Dr. Owen, [facility] ,[place]) Transfer Progress Notes Patient stable with pulses present and pain control at time of transfer. Method of Transfer: Private Vehicle Departure-Patient Inst. Referrals: DOM NIX MD (PCP) Primary Care Physician CHRIS SHELTON DO Jul 04, 2022 16:58
[2022-07-04 17:04] LABS: ALBUMIN 4.5 GM/DL (3.2-4.5); BILIRUBIN,TOTAL 0.3 MG/DL (0.1-1.0); CALCIUM 9.9 MG/DL (8.5-10.1); CREATININE SERUM 0.89 MG/DL (0.60-1.30); POTASSIUM 3.8 MMOL/L (3.6-5.0); TOTAL PROTEIN 7.7 GM/DL (6.4-8.2)
[2022-07-04] MEDS ORDERED: ENOXAPARIN 80 MG/0.8 ML (LOVENOX) SYR SC ONE (17:45)
[2022-07-04] MEDS ORDERED: ENOXAPARIN 80 MG/0.8 ML (LOVENOX) SYR ONE (17:53)
[2022-07-04 18:12] VITALS: BP 147/73
== END 2022-07-04 18:10 | disposition short-term general hospital (02) ==
LOC: EDUNIT# 16:04 → ER FS 16:05
DX: M25.562 Pain in left knee (principal); R79.1 Abnormal coagulation profile; C50.919 Malignant neoplasm of unspecified site of unspecified female breast; Z79.890 Hormone replacement therapy; Z92.3 Personal history of irradiation; Z88.5 Allergy status to narcotic agent; Z28.310 Unvaccinated for COVID-19; Z86.16 Personal history of COVID-19
CPT/HCPCS: 36415; 73562; 80053; 85025; 85379